=== PATIENT | male | born 1955 | race Caucasian/White ===

== ENCOUNTER 2016-06-29 12:37 | Emergency (ER) | payer OTHER ==
[2016-06-29] MEDS ORDERED: ONDANSETRON 4MG/2ML VIAL (J2405) As Ordered ONE (14:34)
[2016-06-29 14:55] LABS: BASO % 0.2 % (0.0-1.0); EOS # 0.1 K/mm3 (0.0-0.50); EOS % 1.4 % (0.0-3.0); LARGE UNSTAINED CELL # 0.1 K/mm3 (0.0-0.4); LYMPH # 0.7 K/mm3 (1.5-4.5); LYMPH % 12.1 % (24.0-44.0); MEAN CORPUSCULAR HEMOGLOBIN 30.9 pg (27.0-33.0); MEAN CORPUSCULAR HGB CONC 33.8 g/dl (32.0-36.5); MEAN CORPUSCULAR VOLUME 91.4 fl (80.0-96.0); MONO # 0.3 K/mm3 (0.0-0.8); MONO % 6.1 % (0.0-5.0); NEUTROPHILS # 4.3 K/mm3 (1.8-7.7); NEUTROPHILS % 78.2 % (36.0-66.0); PLATELET COUNT, AUTOMATED 208 k/mm3 (150-450); RED CELL DISTRIBUTION WIDTH 12.6 % (11.5-14.5); WHITE BLOOD COUNT 5.4 K/mm3 (4.0-10.0)
[2016-06-29 15:02] LABS: INR 1.03
[2016-06-29 15:19] LABS: ALBUMIN/GLOBULIN RATIO 1.18 (1.00-1.93); ALKALINE PHOSPHATASE 102 U/L (45-117); ALT/SGPT 31 U/L (12-78); ANION GAP 11 MEQ/L (8-16); AST/SGOT 17 U/L (15-37); BILIRUBIN,DIRECT 0.2 MG/DL (0.0-0.2); BILIRUBIN,TOTAL 0.7 MG/DL (0.2-1.0); BLOOD UREA NITROGEN 16 MG/DL (7-18); CARBON DIOXIDE LEVEL 24 MEQ/L (21-32); CHLORIDE LEVEL 109 MEQ/L (98-107); CREATININE FOR GFR 1.01 MG/DL (0.70-1.30); GLOMERULAR FILTRATION RATE > 60.0 (>49); GLUCOSE, FASTING 99 MG/DL (80-110); POTASSIUM SERUM 4.2 MEQ/L (3.5-5.1); SODIUM LEVEL 144 MEQ/L (136-145); TOTAL PROTEIN 7.4 GM/DL (6.4-8.2)
--- NOTE | 2016-06-29 16:03 | EDDOCDS ---
Physician Documentation [facility] Name: Billy Stover Age: 61 yrs Sex: Male : 1955 Arrival Date: 06/29/2016 Time: 12:37 Bed I3 / M3 Private MD: Parish Soria Disposition: 06/29/16 15:47 Discharged to Home/Self Care. Impression: Esophagitis. - Condition is Stable. - Discharge Instructions: Gastritis, Adult. - Prescriptions for Zantac 300 mg Oral Tablet - take 1 tablet by ORAL route At bedtime; 30 tablet. - Medication Reconciliation, Local Pharmacy Hours form. - Follow up: Emergency Department; When: As needed; Reason: Worsening of conditions. Follow up: Parish Sorai MD; When: Call to arrange an appointment; Reason: Wound/Symptom Recheck, Recheck today's complaints, Worsening of conditions, Continuance of care. - Problem is an ongoing problem. - Symptoms have improved. Historical: - Allergies: Bees (Anaphylaxis); - Home Meds: 1. Crestor 40 mg Oral tab 1 tab once daily (Last dose: 06/28/2016) 2. cilas as needed (Last dose: 06/23/2016) 3. Zantac 150 mg Oral tab once daily (Last dose: 06/29/2016 08:30) - PMHx: Hypercholesterolemia; Arthritis; - PSHx: Hernia repair; right knee surgery; trigger finger surgery; Carpal Tunnel Repair- Left; ulner nerve surgery on left elbow; Vasectomy; - Social history: Smoking status: Patient states was never smoker of tobacco. No barriers to communication noted, The patient speaks fluent Estonian, Speaks appropriately for age. - Family history: Not pertinent. - : The pt / caregiver states he / she is not on anticoagulants. Home medication list is obtained from the patient. - Exposure Risk Screening:: None identified. Vital Signs: 06/29 12:39 BP 167 / 92; Pulse 89; Resp 18 S; Temp 97.0(O); Pulse Ox 99% on R/A; Weight 146.06 kg / gr2 322.01 lbs (R); Height 6 ft. 3 in. (190.50 cm) (R); Pain 4/10; 14:05 BP 168 / 96; Pulse 100; Resp 18; Temp 99.2; Pulse Ox 97% on R/A; Pain 1/10; rn1 15:57 BP 144 / 82; Pulse 94; Resp 18; Temp 98.1(TE); Pulse Ox 95% on R/A; Pain 0/10; rn1 12:39 Body Mass Index 40.25 (146.06 kg, 190.50 cm) gr2 MDM: 14:25 Ondansetron 4 mg IVP once ordered. cc10 14:25 IV Saline Lock ordered. cc10 14:25 Undress patient appropriately for examination ordered. cc10 14:26 Basic Metabolic Profile Ordered. EDMS 14:26 CBC with Diff Ordered. EDMS 14:26 Cardiac Injury Profile Ordered. EDMS 14:26 Lipase Ordered. EDMS 14:26 Liver Profile Ordered. EDMS 14:26 Partial Thromboplastin Time Ordered. EDMS 14:26 Prothrombin Time Profile\E\INR Ordered. EDMS 14:26 Troponin Ordered. EDMS 14:26 Urinalysis Ordered. EDMS 14:26 NOTHING BY MOUTH+DIET ordered. EDMS 15:41 Basic Metabolic Profile Reviewed. cc10 15:41 CBC with Diff Reviewed. cc10 15:41 Urinalysis Reviewed. cc10 15:41 Cardiac Injury Profile Reviewed. cc10 15:41 Lipase Reviewed. cc10 15:41 Liver Profile Reviewed. cc10 15:41 Partial Thromboplastin Time Reviewed. cc10 15:41 Prothrombin Time Profile\E\INR Reviewed. cc10 15:41 Troponin Reviewed. cc10 15:43 Financial registration complete. [facility] 15:44 [facility] Payment Agreement was scanned into [employer] and attached to record. gjb Administered Medications: 14:40 Drug: Ondansetron 4 mg [ondansetron HCl 2 mg/mL intravenous solution (2 mL)] Route: ttb IVP; Site: right antecubital; 16:01 Follow up: Response: No Adverse Reaction ka4 Signatures: Dispatcher [employer] EDMS Maryjane Stubbs RN RN dsJody Leon RN RN ttb Bandar Polk, PA-C PA-C cc10 Dian Rojo LPN NET DEVELOPER [employer] ka4 Katherine Barroso The chart was reviewed and I authenticate all verbal orders and agree with the evaluation and treatment provided.Attachments: 15:44 [facility] Payment Agreement gjb MTDD
--- NOTE | 2016-06-29 16:04 | EDDOCDS ---
Nurse's Notes [facility] Name: Billy Stover Age: 61 yrs Sex: Male : 1955 Arrival Date: 06/29/2016 Time: 12:37 Bed I3 / M3 Private MD: Parish Soria Diagnosis: Esophagitis Presentation: 06/29 12:43 Presenting complaint: Patient states: took a cilas on Sunday and has had heart burn dsf since then. pt states he usually will get heartburn afterwards but it will go away this time it has not. pt did go to urgent care an EKG was down and said it looked normal but needed blood work down. Adult Sepsis Screening: The patient does not have new or worsening altered mentation. Patient's respiratory rate is less than 22. Systolic blood pressure is greater than 100. Patient has a qSOFA score of 0- Negative Sepsis Screen. Suicide/Homicide risk assessment- the patient denies having any suicidal and/or homicidal ideations and does not present with any other emotional, behavioral or mental health complaints. 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 Transition of care: Patient was received from [facility] [place] [facility]. 12:43 Acuity: ERIC Level 4 dsf 12:43 Method Of Arrival: Walkin/Carried/Asstd dsf Triage Assessment: 12:47 General: Appears in no apparent distress, Behavior is appropriate for age, cooperative. dsf Pain: Denies pain. HIV screening NA for this visit Offered previously. GI: Reports heartburn. Historical: - Allergies: Bees (Anaphylaxis); - Home Meds: 1. Crestor 40 mg Oral tab 1 tab once daily (Last dose: 06/28/2016) 2. cilas as needed (Last dose: 06/23/2016) 3. Zantac 150 mg Oral tab once daily (Last dose: 06/29/2016 08:30) - PMHx: Hypercholesterolemia; Arthritis; - PSHx: Hernia repair; right knee surgery; trigger finger surgery; Carpal Tunnel Repair- Left; ulner nerve surgery on left elbow; Vasectomy; - Social history: Smoking status: Patient states was never smoker of tobacco. No barriers to communication noted, The patient speaks fluent Andorran, Speaks appropriately for age. - Family history: Not pertinent. - : The pt / caregiver states he / she is not on anticoagulants. Home medication list is obtained from the patient. - Exposure Risk Screening:: None identified. Screenin:59 Screening information is obtained from the patient. Fall risk: No risks identified. ka4 Assistance ADL's: requires no assistance with activities of daily living. Abuse/DV Screen: The patient / caregiver reports he/she is: not in a situation that causes fear, pain or injury. Nutritional screening: No deficits noted. Advance Directives: There is no active DNR order. home support is adequate. Assessment: 13:55 Adult Sepsis Screening: The patient does not have new or worsening altered mentation. dsf Patient's respiratory rate is less than 22. Systolic blood pressure is greater than 100. Patient has a qSOFA score of 0- Negative Sepsis Screen. General: Appears in no apparent distress, Behavior is appropriate for age, cooperative. Pain: Denies pain. Neurological: Level of Consciousness is awake, alert. Cardiovascular: Capillary refill < 3 seconds Heart tones S1 S2 present. Respiratory: Airway is patent Respiratory effort is even, unlabored, Respiratory pattern is regular, symmetrical, Breath sounds are clear bilaterally. GI: Abdomen is non- distended obese, Bowel sounds present X 4 quads. Abd is soft and non tender X 4 quads. Reports heart burn is better. Derm: Skin is pink, warm & dry. 14:49 General: Appears in no apparent distress, comfortable. Pain: Location: upper abd. ttb Neurological: Level of Consciousness is awake, alert. Cardiovascular: Chest pain is denied. Cardiovascular: Heart tones S1 S2 present. Respiratory: No deficits noted. Airway is patent Respiratory effort is even, unlabored, Breath sounds are clear bilaterally. GI: Reports "heartburn" and "indigestion". Derm: Skin is normal. 15:59 General: Appears in no apparent distress, comfortable, well developed, well nourished, ka4 well groomed, Behavior is appropriate for age, cooperative, pleasant. Respiratory: Airway is patent Respiratory effort is even, unlabored, Respiratory pattern is regular, symmetrical. Derm: Skin is intact, is healthy with good turgor, Skin is pink, warm & dry. Vital Signs: 12:39 BP 167 / 92; Pulse 89; Resp 18 S; Temp 97.0(O); Pulse Ox 99% on R/A; Weight 146.06 kg gr2 (R); Height 6 ft. 3 in. (190.50 cm) (R); Pain 4/10; 14:05 BP 168 / 96; Pulse 100; Resp 18; Temp 99.2; Pulse Ox 97% on R/A; Pain 1/10; rn1 15:57 BP 144 / 82; Pulse 94; Resp 18; Temp 98.1(TE); Pulse Ox 95% on R/A; Pain 0/10; rn1 12:39 Body Mass Index 40.25 (146.06 kg, 190.50 cm) gr2 Vitals: 12:39 Log In Time: June 29, 2016 at 12:39. gr2 ED Course: 12:38 Patient visited by Giuseppe Atkins. gr2 12:38 Parish Soria MD is Private Physician. gr2 12:38 Patient moved to Waiting gr2 12:40 Patient visited by Giuseppe Atkins. gr2 12:40 Patient moved to Pre RCE gr2 12:45 Triage Initiated dsf 13:53 Patient moved to Triage 2 dsf 13:56 Patient visited by Maryjane Stubbs RN. dsf 14:20 Bandar Polk PA-C is PHCP. cc10 14:20 Carolina Jaquez MD is Attending Physician. cc10 14:20 Patient visited by Bandar Polk PA-C. cc10 14:20 Patient visited by Bandar Polk PA-C. cc10 14:27 Patient moved to I3 / M3 kr3 14:48 Basic Metabolic Profile Sent. ttb 14:48 CBC with Diff Sent. ttb 14:48 Cardiac Injury Profile Sent. ttb 14:48 Lipase Sent. ttb 14:48 Liver Profile Sent. ttb 14:48 Partial Thromboplastin Time Sent. ttb 14:48 Prothrombin Time Profile\\E\\INR Sent. ttb 14:48 Troponin Sent. ttb 14:48 Urinalysis Sent. ttb 14:49 Inserted peripheral IV: 20gauge IV in right antecubital area and blood collected. ttb Patient tolerated the procedure well. Labs drawn. (by ED staff). Urine collected. Clean catch specimen. 14:51 Patient visited by Jody Moulton RN. ttb 15:43 Patient visited by Ana Bautista RN. rs3 15:44 [facility] Payment Agreement was scanned into [employer] and attached to record. gjb 15:46 Parish Soria MD is Referral Physician. cc10 15:59 The patient / caregiver is instructed regarding the plan of care and ED course. Patient preet has correct armband on for positive identification. 15:59 Discontinued IV lock intact, bleeding controlled, pressure dressing applied, No ka4 redness/swelling at site. No procedures done that require assistance. 16:02 Patient visited by Dian Rojo LPN. kaMaggie Administered Medications: 14:40 Drug: Ondansetron 4 mg [ondansetron HCl 2 mg/mL intravenous solution (2 mL)] Route: ttb IVP; Site: right antecubital; 16:01 Follow up: Response: No Adverse Reaction kaMaggie Order Results: Lab Order: Basic Metabolic Profile; SPEC'M 06/29/16 14:44 Test: GLUCOSE, FASTING; Value: 99; Range: 80-110; Units: MG/DL; Status: F Test: BLOOD UREA NITROGEN; Value: 16; Range: 7-18; Units: MG/DL; Status: F Test: CREATININE FOR GFR; Value: 1.01; Range: 0.70-1.30; Units: MG/DL; Status: F Test: GLOMERULAR FILTRATION RATE; Value: > 60.0; Range: >49; Status: F Test: SODIUM LEVEL; Value: 144; Range: 136-145; Units: MEQ/L; Status: F Test: POTASSIUM SERUM; Value: 4.2; Range: 3.5-5.1; Units: MEQ/L; Status: F Test: CHLORIDE LEVEL; Value: 109; Range: 98-107; Abnormal: Above high normal; Units: MEQ/L; Status: F Test: CARBON DIOXIDE LEVEL; Value: 24; Range: 21-32; Units: MEQ/L; Status: F Test: ANION GAP; Value: 11; Range: 8-16; Units: MEQ/L; Status: F Test: CALCIUM LEVEL; Value: 9.0; Range: 8.8-10.2; Units: MG/DL; Status: F Test Note: ; Units are mL/min/1.73 m2 Chronic Kidney Disease Staging per NKF: Stage I & II GFR >=60 Normal to Mildly Decreased Stage III GFR 30-59 Moderately Decreased Stage IV GFR 15-29 Severely Decreased Stage V GFR <15 Very Little GFR Left ESRD GFR <15 on OPTOMETRIC TECH Lab Order: CBC with Diff; SPEC'M 06/29/16 14:44 Test: WHITE BLOOD COUNT; Value: 5.4; Range: 4.0-10.0; Units: K/mm3; Status: F Test: RED BLOOD COUNT; Value: 5.06; Range: 4.30-6.10; Units: M/mm3; Status: F Test: HEMOGLOBIN; Value: 15.6; Range: 14.0-18.0; Units: g/dl; Status: F Test: HEMATOCRIT; Value: 46.2; Range: 42.0-52.0; Units: %; Status: F Test: MEAN CORPUSCULAR VOLUME; Value: 91.4; Range: 80.0-96.0; Units: fl; Status: F Test: MEAN CORPUSCULAR HEMOGLOBIN; Value: 30.9; Range: 27.0-33.0; Units: pg; Status: F Test: MEAN CORPUSCULAR HGB CONC; Value: 33.8; Range: 32.0-36.5; Units: g/dl; Status: F Test: RED CELL DISTRIBUTION WIDTH; Value: 12.6; Range: 11.5-14.5; Units: %; Status: F Test: PLATELET COUNT, AUTOMATED; Value: 208; Range: 150-450; Units: k/mm3; Status: F Test: NEUTROPHILS %; Value: 78.2; Range: 36.0-66.0; Abnormal: Above high normal; Units: %; Status: F Test: LYMPH %; Value: 12.1; Range: 24.0-44.0; Abnormal: Below low normal; Units: %; Status: F Test: MONO %; Value: 6.1; Range: 0.0-5.0; Abnormal: Above high normal; Units: %; Status: F Test: EOS %; Value: 1.4; Range: 0.0-3.0; Units: %; Status: F Test: BASO %; Value: 0.2; Range: 0.0-1.0; Units: %; Status: F Test: LARGE UNSTAINED CELL %; Value: 2.0; Range: 0.0-4.0; Units: %; Status: F Test: NEUTROPHILS #; Value: 4.3; Range: 1.8-7.7; Units: K/mm3; Status: F Test: LYMPH #; Value: 0.7; Range: 1.5-4.5; Abnormal: Below low normal; Units: K/mm3; Status: F Test: MONO #; Value: 0.3; Range: 0.0-0.8; Units: K/mm3; Status: F Test: EOS #; Value: 0.1; Range: 0.0-0.50; Units: K/mm3; Status: F Test: BASO #; Value: 0.0; Range: 0.0-0.2; Units: K/mm3; Status: F Test: LARGE UNSTAINED CELL #; Value: 0.1; Range: 0.0-0.4; Units: K/mm3; Status: F Lab Order: Cardiac Injury Profile; [facility]' 06/29/16 14:44 Test: CPK CREATINE PHOSPHOKINASE; Value: 210; Range: 39-308; Units: U/L; Status: F Test: CK-MB VALUE MASS; Value: 2.9; Range: 0.0-3.6; Units: NG/ML; Status: F Test: MB/CK RELATIVE INDEX; Value: 1.38; Range: < OR =4; Status: F Test Note: ; DIAGNOSIS CRITERIA MMB ng/ml Relative Index (RI) NON-AMI < or = 5 N/A MELLO ZONE > 5 < or = 4 AMI > 5 > 4 Lab Order: Lipase; [facility]' 06/29/16 14:44 Test: LIPASE; Value: 139; Range: 73-393; Units: U/L; Status: F Lab Order: Liver Profile; [facility]' 06/29/16 14:44 Test: AST/SGOT; Value: 17; Range: 15-37; Units: U/L; Status: F Test: ALT/SGPT; Value: 31; Range: 12-78; Units: U/L; Status: F Test: ALKALINE PHOSPHATASE; Value: 102; Range: 45-117; Units: U/L; Status: F Test: BILIRUBIN,TOTAL; Value: 0.7; Range: 0.2-1.0; Units: MG/DL; Status: F Test: BILIRUBIN,DIRECT; Value: 0.2; Range: 0.0-0.2; Units: MG/DL; Status: F Test: TOTAL PROTEIN; Value: 7.4; Range: 6.4-8.2; Units: GM/DL; Status: F Test: ALBUMIN; Value: 4.0; Range: 3.2-5.2; Units: GM/DL; Status: F Test: ALBUMIN/GLOBULIN RATIO; Value: 1.18; Range: 1.00-1.93; Status: F Lab Order: Partial Thromboplastin Time; [facility] 06/29/16 14:44 Test: PARTIAL THROMBOPLASTIN TIME; Value: 27.7; Range: 26.6-37.1; Units: SECONDS; Status: F Lab Order: Prothrombin Time Profile\\E\\INR; [facility] 06/29/16 14:44 Test: PROTHROMBIN TIME; Value: 13.6; Range: 12.3-14.5; Units: SECONDS; Status: F Test: INR; Value: 1.03; Status: F Test Note: ; THERAPUTIC HUMAN INR VALUES INDICATIONS NORMAL RANGES PROPHYLAXIS/TREATMENT OF: VENOUS THROMBOSIS 2.0-3.0 PULMONARY EMBOLISM 2.0-3.0 PREVENTION OF SYSTEMIC EMBOLISM FROM: TISSUE HEART VALVES 2.0-3.0 ACUTE MYOCARDIAL INFARCTION 2.0-3.0 VALVULAR HEART DISEASE 2.0-3.0 ATRIAL FIBRILLATION 2.0-3.0 MECHANICAL VALVES(HIGH RISK) 2.5-3.5 RECURRENT MYOCARDIAL INFARCTION 2.5-3.5 Lab Order: Troponin; [facility] 06/29/16 14:44 Test: TROPONIN I; Value: < 0.02; Range: < 0.10; Units: NG/ML; Status: F Test Note: ; Troponin I Reference Interval for The Editorialist LOCI: 99th Percentile= 0.00-0.045 ng/ml Risk Stratification: <= 0.10 ng/ml Decreased Risk for Adverse Clinical Events. 0.10-1.50 ng/ml Increased Risk for Adverse Clinical Events. Evaluation of additional criterion and/or repeat testing in 2-6 hours is suggested to rule out myocardial damage. >= 1.50 ng/ml Indicative of Myocardial Injury. Lab Order: Urinalysis; SPEC'M 06/29/16 14:44 Test: APPEARANCE, URINE; Value: HAZY; Range: CLEAR; Status: F Test: COLOR, URINE; Value: YELLOW; Range: YELLOW; Status: F Test: PH,URINE; Value: 6.0; Range: 5.0-9.0; Units: UNITS; Status: F Test: SPECIFIC GRAVITY URINE AUTO; Value: 1.018; Range: 1.002-1.035; Status: F Test: PROTEIN, URINE AUTO; Value: NEGATIVE; Range: NEGATIVE; Units: mg/dL; Status: F Test: GLUCOSE, URINE (UA) AUTO; Value: NEGATIVE; Range: NEGATIVE; Units: mg/dL; Status: F Test: KETONE, URINE AUTO; Value: TRACE; Range: NEGATIVE; Abnormal: Above high normal; Units: mg/dL; Status: F Test: UROBILINOGEN, URINE AUTO; Value: 0.2; Range: 0.0-2.0; Units: mg/dL; Status: F Test: BILIRUBIN, URINE AUTO; Value: NEGATIVE; Range: NEGATIVE; Status: F Test: NITRITE, URINE AUTO; Value: NEGATIVE; Range: NEGATIVE; Status: F Test: LEUKOCYTE ESTERASE, URINE AUTO; Value: NEGATIVE; Range: NEGATIVE; Status: F Test: BLOOD, URINE BLOOD; Value: NEGATIVE; Range: NEGATIVE; Status: F Test: WBC, URINE AUTO; Value: 3; Range: 0-3; Units: /HPF; Status: F Test: RBC, URINE AUTO; Value: 17; Range: 0-3; Abnormal: Above high normal; Units: /HPF; Status: F Test: BACTERIA, URINE AUTO; Value: NEGATIVE; Range: NEGATIVE; Status: F Test: SQUAMOUS EPITHELIAL CELL UR AU; Value: 0; Range: 0-6; Units: /HPF; Status: F Test: MUCUS, URINE; Value: SMALL; Range: NEGATIVE; Status: F Test: HYALINE CAST, URINE AUTO; Value: 0; Range: 0-1; Units: /LPF; Status: F Outcome: 15:47 Discharge ordered by Provider. cc10 15:59 Discharge Assessment: Patient awake, alert and oriented x 3. No cognitive and/or ka4 functional deficits noted. Patient verbalized understanding of disposition instructions. patient administered narcotics - no. The following High Risk Discharge criteria are identified: None. Discharged to home ambulatory. Condition: good Condition: stable Condition: improved. Discharge instructions given to patient, Instructed on discharge instructions, follow up and referral plans. medication usage, Demonstrated understanding of instructions, medications, Pt was receptive of discharge instructions/ teaching. Prescriptions given X 1. No special radiology studies were completed. Property :Personal belongings accompany Pt. 16:02 Patient left the ED. ka4 Signatures: Landy Spencer,RN RN kr3 Ana BautistaRN RN rs3 Maryjane Stubbs RN RN dsJody Leon RN RN ttb Giuseppe Atkins gr2 Bandar Polk, PA-C PA-C cc10 Dian Rojo LPN LPN ka4 Kingsley Miguel rn1 Katherine Barroso MTDBreanne
--- NOTE | 2016-07-01 17:03 | EDDOCDS ---
Physician Documentation [facility] Name: Billy Stover Age: 61 yrs Sex: Male : 1955 Arrival Date: 06/29/2016 Time: 12:37 Bed I3 / M3 Private MD: Parish Soria Disposition: 06/29/16 15:47 Discharged to Home/Self Care. Impression: Esophagitis. - Condition is Stable. - Discharge Instructions: Gastritis, Adult. - Prescriptions for Zantac 300 mg Oral Tablet - take 1 tablet by ORAL route At bedtime; 30 tablet. - Medication Reconciliation, Local Pharmacy Hours form. - Follow up: Emergency Department; When: As needed; Reason: Worsening of conditions. Follow up: Parish Soria MD; When: Call to arrange an appointment; Reason: Wound/Symptom Recheck, Recheck today's complaints, Worsening of conditions, Continuance of care. - Problem is an ongoing problem. - Symptoms have improved. Historical: - Allergies: Bees (Anaphylaxis); - Home Meds: 1. Crestor 40 mg Oral tab 1 tab once daily (Last dose: 06/28/2016) 2. cilas as needed (Last dose: 06/23/2016) 3. Zantac 150 mg Oral tab once daily (Last dose: 06/29/2016 08:30) - PMHx: Hypercholesterolemia; Arthritis; - PSHx: Hernia repair; right knee surgery; trigger finger surgery; Carpal Tunnel Repair- Left; ulner nerve surgery on left elbow; Vasectomy; - Social history: Smoking status: Patient states was never smoker of tobacco. No barriers to communication noted, The patient speaks fluent Pashto, Speaks appropriately for age. - Family history: Not pertinent. - : The pt / caregiver states he / she is not on anticoagulants. Home medication list is obtained from the patient. - Exposure Risk Screening:: None identified. Vital Signs: 06/29 12:39 BP 167 / 92; Pulse 89; Resp 18 S; Temp 97.0(O); Pulse Ox 99% on R/A; Weight 146.06 kg / gr2 322.01 lbs (R); Height 6 ft. 3 in. (190.50 cm) (R); Pain 4/10; 14:05 BP 168 / 96; Pulse 100; Resp 18; Temp 99.2; Pulse Ox 97% on R/A; Pain 1/10; rn1 15:57 BP 144 / 82; Pulse 94; Resp 18; Temp 98.1(TE); Pulse Ox 95% on R/A; Pain 0/10; rn1 12:39 Body Mass Index 40.25 (146.06 kg, 190.50 cm) gr2 MDM: 14:25 Ondansetron 4 mg IVP once ordered. cc10 14:25 IV Saline Lock ordered. cc10 14:25 Undress patient appropriately for examination ordered. cc10 14:26 Basic Metabolic Profile Ordered. EDMS 14:26 CBC with Diff Ordered. EDMS 14:26 Cardiac Injury Profile Ordered. EDMS 14:26 Lipase Ordered. EDMS 14:26 Liver Profile Ordered. EDMS 14:26 Partial Thromboplastin Time Ordered. EDMS 14:26 Prothrombin Time Profile\E\INR Ordered. EDMS 14:26 Troponin Ordered. EDMS 14:26 Urinalysis Ordered. EDMS 14:26 NOTHING BY MOUTH+DIET ordered. EDMS 15:41 Basic Metabolic Profile Reviewed. cc10 15:41 CBC with Diff Reviewed. cc10 15:41 Urinalysis Reviewed. cc10 15:41 Cardiac Injury Profile Reviewed. cc10 15:41 Lipase Reviewed. cc10 15:41 Liver Profile Reviewed. cc10 15:41 Partial Thromboplastin Time Reviewed. cc10 15:41 Prothrombin Time Profile\E\INR Reviewed. cc10 15:41 Troponin Reviewed. cc10 15:43 Financial registration complete. [facility] 15:44 [facility] Payment Agreement was scanned into [employer] and attached to record. [facility] 06/30 08:12 T-Sheet-- Draft Copy was scanned into [employer] and attached to record. gb Administered Medications: 06/29 14:40 Drug: Ondansetron 4 mg [ondansetron HCl 2 mg/mL intravenous solution (2 mL)] Route: ttb IVP; Site: right antecubital; 16:01 Follow up: Response: No Adverse Reaction ka4 Signatures: Dispatcher [employer] EDMS Edilma Romero, Maryjane Souza RN RN dsJody Leon RN RN ttb Bandar Polk, PA-C PA-C cc10 Dian Rojo LPN [employer] ka4 Katherine Barroso The chart was reviewed and I authenticate all verbal orders and agree with the evaluation and treatment provided.Attachments: 15:44 [facility] Payment Agreement gjb 06/30 08:12 T-Sheet-- Draft Copy gb Chart Complete MTDD
--- NOTE | 2016-07-01 17:03 | EDDOCDS ---
Physician Documentation [facility] Name: Billy Stover Age: 61 yrs Sex: Male : 1955 Arrival Date: 06/29/2016 Time: 12:37 Bed I3 / M3 Private MD: Parish Soria Disposition: 06/29/16 15:47 Discharged to Home/Self Care. Impression: Esophagitis. - Condition is Stable. - Discharge Instructions: Gastritis, Adult. - Prescriptions for Zantac 300 mg Oral Tablet - take 1 tablet by ORAL route At bedtime; 30 tablet. - Medication Reconciliation, Local Pharmacy Hours form. - Follow up: Emergency Department; When: As needed; Reason: Worsening of conditions. Follow up: Parish Soria MD; When: Call to arrange an appointment; Reason: Wound/Symptom Recheck, Recheck today's complaints, Worsening of conditions, Continuance of care. - Problem is an ongoing problem. - Symptoms have improved. Historical: - Allergies: Bees (Anaphylaxis); - Home Meds: 1. Crestor 40 mg Oral tab 1 tab once daily (Last dose: 06/28/2016) 2. cilas as needed (Last dose: 06/23/2016) 3. Zantac 150 mg Oral tab once daily (Last dose: 06/29/2016 08:30) - PMHx: Hypercholesterolemia; Arthritis; - PSHx: Hernia repair; right knee surgery; trigger finger surgery; Carpal Tunnel Repair- Left; ulner nerve surgery on left elbow; Vasectomy; - Social history: Smoking status: Patient states was never smoker of tobacco. No barriers to communication noted, The patient speaks fluent Latvian, Speaks appropriately for age. - Family history: Not pertinent. - : The pt / caregiver states he / she is not on anticoagulants. Home medication list is obtained from the patient. - Exposure Risk Screening:: None identified. Vital Signs: 06/29 12:39 BP 167 / 92; Pulse 89; Resp 18 S; Temp 97.0(O); Pulse Ox 99% on R/A; Weight 146.06 kg / gr2 322.01 lbs (R); Height 6 ft. 3 in. (190.50 cm) (R); Pain 4/10; 14:05 BP 168 / 96; Pulse 100; Resp 18; Temp 99.2; Pulse Ox 97% on R/A; Pain 1/10; rn1 15:57 BP 144 / 82; Pulse 94; Resp 18; Temp 98.1(TE); Pulse Ox 95% on R/A; Pain 0/10; rn1 12:39 Body Mass Index 40.25 (146.06 kg, 190.50 cm) gr2 MDM: 14:25 Ondansetron 4 mg IVP once ordered. cc10 14:25 IV Saline Lock ordered. cc10 14:25 Undress patient appropriately for examination ordered. cc10 14:26 Basic Metabolic Profile Ordered. EDMS 14:26 CBC with Diff Ordered. EDMS 14:26 Cardiac Injury Profile Ordered. EDMS 14:26 Lipase Ordered. EDMS 14:26 Liver Profile Ordered. EDMS 14:26 Partial Thromboplastin Time Ordered. EDMS 14:26 Prothrombin Time Profile\E\INR Ordered. EDMS 14:26 Troponin Ordered. EDMS 14:26 Urinalysis Ordered. EDMS 14:26 NOTHING BY MOUTH+DIET ordered. EDMS 15:41 Basic Metabolic Profile Reviewed. cc10 15:41 CBC with Diff Reviewed. cc10 15:41 Urinalysis Reviewed. cc10 15:41 Cardiac Injury Profile Reviewed. cc10 15:41 Lipase Reviewed. cc10 15:41 Liver Profile Reviewed. cc10 15:41 Partial Thromboplastin Time Reviewed. cc10 15:41 Prothrombin Time Profile\E\INR Reviewed. cc10 15:41 Troponin Reviewed. cc10 15:43 Financial registration complete. [facility] 15:44 [facility] Payment Agreement was scanned into [employer] and attached to record. [facility] 06/30 08:12 T-Sheet-- Draft Copy was scanned into [employer] and attached to record. gb Administered Medications: 06/29 14:40 Drug: Ondansetron 4 mg [ondansetron HCl 2 mg/mL intravenous solution (2 mL)] Route: ttb IVP; Site: right antecubital; 16:01 Follow up: Response: No Adverse Reaction ka4 Signatures: Dispatcher [employer] EDMS Edilma Romero, Maryjane Souza RN RN dsJody Leon RN RN ttb Bandar Polk, PA-C PA-C cc10 Dian Rojo LPN SOLARIS ADMINISTRATOR ka4 Katherine Barroso The chart was reviewed and I authenticate all verbal orders and agree with the evaluation and treatment provided.Attachments: 15:44 [facility] Payment Agreement gjb 06/30 08:12 T-Sheet-- Draft Copy gb Chart Complete MTDD
--- NOTE | 2016-07-01 17:03 | EDDOCDS ---
Nurse's Notes [facility] Name: Billy Stover Age: 61 yrs Sex: Male : 1955 Arrival Date: 06/29/2016 Time: 12:37 Bed I3 / M3 Private MD: Parish Soria Diagnosis: Esophagitis Presentation: 06/29 12:43 Presenting complaint: Patient states: took a cilas on Sunday and has had heart burn dsf since then. pt states he usually will get heartburn afterwards but it will go away this time it has not. pt did go to urgent care an EKG was down and said it looked normal but needed blood work down. Adult Sepsis Screening: The patient does not have new or worsening altered mentation. Patient's respiratory rate is less than 22. Systolic blood pressure is greater than 100. Patient has a qSOFA score of 0- Negative Sepsis Screen. Suicide/Homicide risk assessment- the patient denies having any suicidal and/or homicidal ideations and does not present with any other emotional, behavioral or mental health complaints. Status: Patient is not a senior service aide or dependent. Transition of care: Patient was received from [facility] Urgent [facility] [place]. 12:43 Acuity: ERIC Level 4 dsf 12:43 Method Of Arrival: Walkin/Carried/Asstd dsf Triage Assessment: 12:47 General: Appears in no apparent distress, Behavior is appropriate for age, cooperative. dsf Pain: Denies pain. HIV screening NA for this visit Offered previously. GI: Reports heartburn. Historical: - Allergies: Bees (Anaphylaxis); - Home Meds: 1. Crestor 40 mg Oral tab 1 tab once daily (Last dose: 06/28/2016) 2. cilas as needed (Last dose: 06/23/2016) 3. Zantac 150 mg Oral tab once daily (Last dose: 06/29/2016 08:30) - PMHx: Hypercholesterolemia; Arthritis; - PSHx: Hernia repair; right knee surgery; trigger finger surgery; Carpal Tunnel Repair- Left; ulner nerve surgery on left elbow; Vasectomy; - Social history: Smoking status: Patient states was never smoker of tobacco. No barriers to communication noted, The patient speaks fluent Lebanese, Speaks appropriately for age. - Family history: Not pertinent. - : The pt / caregiver states he / she is not on anticoagulants. Home medication list is obtained from the patient. - Exposure Risk Screening:: None identified. Screenin:59 Screening information is obtained from the patient. Fall risk: No risks identified. ka4 Assistance ADL's: requires no assistance with activities of daily living. Abuse/DV Screen: The patient / caregiver reports he/she is: not in a situation that causes fear, pain or injury. Nutritional screening: No deficits noted. Advance Directives: There is no active DNR order. home support is adequate. Assessment: 13:55 Adult Sepsis Screening: The patient does not have new or worsening altered mentation. dsf Patient's respiratory rate is less than 22. Systolic blood pressure is greater than 100. Patient has a qSOFA score of 0- Negative Sepsis Screen. General: Appears in no apparent distress, Behavior is appropriate for age, cooperative. Pain: Denies pain. Neurological: Level of Consciousness is awake, alert. Cardiovascular: Capillary refill < 3 seconds Heart tones S1 S2 present. Respiratory: Airway is patent Respiratory effort is even, unlabored, Respiratory pattern is regular, symmetrical, Breath sounds are clear bilaterally. GI: Abdomen is non- distended obese, Bowel sounds present X 4 quads. Abd is soft and non tender X 4 quads. Reports heart burn is better. Derm: Skin is pink, warm & dry. 14:49 General: Appears in no apparent distress, comfortable. Pain: Location: upper abd. ttb Neurological: Level of Consciousness is awake, alert. Cardiovascular: Chest pain is denied. Cardiovascular: Heart tones S1 S2 present. Respiratory: No deficits noted. Airway is patent Respiratory effort is even, unlabored, Breath sounds are clear bilaterally. GI: Reports "heartburn" and "indigestion". Derm: Skin is normal. 15:59 General: Appears in no apparent distress, comfortable, well developed, well nourished, ka4 well groomed, Behavior is appropriate for age, cooperative, pleasant. Respiratory: Airway is patent Respiratory effort is even, unlabored, Respiratory pattern is regular, symmetrical. Derm: Skin is intact, is healthy with good turgor, Skin is pink, warm & dry. Vital Signs: 12:39 BP 167 / 92; Pulse 89; Resp 18 S; Temp 97.0(O); Pulse Ox 99% on R/A; Weight 146.06 kg gr2 (R); Height 6 ft. 3 in. (190.50 cm) (R); Pain 4/10; 14:05 BP 168 / 96; Pulse 100; Resp 18; Temp 99.2; Pulse Ox 97% on R/A; Pain 1/10; rn1 15:57 BP 144 / 82; Pulse 94; Resp 18; Temp 98.1(TE); Pulse Ox 95% on R/A; Pain 0/10; rn1 12:39 Body Mass Index 40.25 (146.06 kg, 190.50 cm) gr2 Vitals: 12:39 Log In Time: June 29, 2016 at 12:39. gr2 ED Course: 12:38 Patient visited by Giuseppe Atkins. gr2 12:38 Parish Soria MD is Private Physician. gr2 12:38 Patient moved to Waiting gr2 12:40 Patient visited by Giuseppe Atkins. gr2 12:40 Patient moved to Pre RCE gr2 12:45 Triage Initiated dsf 13:53 Patient moved to Triage 2 dsf 13:56 Patient visited by Maryjane Stubbs RN. dsf 14:20 Bandar Polk PA-C is PHCP. cc10 14:20 Carolina Jaquez MD is Attending Physician. cc10 14:20 Patient visited by Bandar Polk PA-C. cc10 14:20 Patient visited by Bandar Polk PA-C. cc10 14:27 Patient moved to I3 / M3 kr3 14:48 Basic Metabolic Profile Sent. ttb 14:48 CBC with Diff Sent. ttb 14:48 Cardiac Injury Profile Sent. ttb 14:48 Lipase Sent. ttb 14:48 Liver Profile Sent. ttb 14:48 Partial Thromboplastin Time Sent. ttb 14:48 Prothrombin Time Profile\\E\\INR Sent. ttb 14:48 Troponin Sent. ttb 14:48 Urinalysis Sent. ttb 14:49 Inserted peripheral IV: 20gauge IV in right antecubital area and blood collected. ttb Patient tolerated the procedure well. Labs drawn. (by ED staff). Urine collected. Clean catch specimen. 14:51 Patient visited by Jody Moulton RN. ttb 15:43 Patient visited by Ana Bautista RN. rs3 15:44 [facility] Payment Agreement was scanned into [employer] and attached to record. gjb 15:46 Parish Soria MD is Referral Physician. cc10 15:59 The patient / caregiver is instructed regarding the plan of care and ED course. Patient preet has correct armband on for positive identification. 15:59 Discontinued IV lock intact, bleeding controlled, pressure dressing applied, No kaMaggie redness/swelling at site. No procedures done that require assistance. 16:02 Patient visited by Dian Rojo LPN. preet 06/30 08:12 T-Sheet-- Draft Copy was scanned into [employer] and attached to record. gb Administered Medications: 06/29 14:40 Drug: Ondansetron 4 mg [ondansetron HCl 2 mg/mL intravenous solution (2 mL)] Route: ttb IVP; Site: right antecubital; 16:01 Follow up: Response: No Adverse Reaction kaMaggie Order Results: Lab Order: Basic Metabolic Profile; SPEC'M 06/29/16 14:44 Test: GLUCOSE, FASTING; Value: 99; Range: 80-110; Units: MG/DL; Status: F Test: BLOOD UREA NITROGEN; Value: 16; Range: 7-18; Units: MG/DL; Status: F Test: CREATININE FOR GFR; Value: 1.01; Range: 0.70-1.30; Units: MG/DL; Status: F Test: GLOMERULAR FILTRATION RATE; Value: > 60.0; Range: >49; Status: F Test: SODIUM LEVEL; Value: 144; Range: 136-145; Units: MEQ/L; Status: F Test: POTASSIUM SERUM; Value: 4.2; Range: 3.5-5.1; Units: MEQ/L; Status: F Test: CHLORIDE LEVEL; Value: 109; Range: 98-107; Abnormal: Above high normal; Units: MEQ/L; Status: F Test: CARBON DIOXIDE LEVEL; Value: 24; Range: 21-32; Units: MEQ/L; Status: F Test: ANION GAP; Value: 11; Range: 8-16; Units: MEQ/L; Status: F Test: CALCIUM LEVEL; Value: 9.0; Range: 8.8-10.2; Units: MG/DL; Status: F Test Note: ; Units are mL/min/1.73 m2 Chronic Kidney Disease Staging per NKF: Stage I & II GFR >=60 Normal to Mildly Decreased Stage III GFR 30-59 Moderately Decreased Stage IV GFR 15-29 Severely Decreased Stage V GFR <15 Very Little GFR Left ESRD GFR <15 on CLAIM AGENT Lab Order: CBC with Diff; SPEC'M 06/29/16 14:44 Test: WHITE BLOOD COUNT; Value: 5.4; Range: 4.0-10.0; Units: K/mm3; Status: F Test: RED BLOOD COUNT; Value: 5.06; Range: 4.30-6.10; Units: M/mm3; Status: F Test: HEMOGLOBIN; Value: 15.6; Range: 14.0-18.0; Units: g/dl; Status: F Test: HEMATOCRIT; Value: 46.2; Range: 42.0-52.0; Units: %; Status: F Test: MEAN CORPUSCULAR VOLUME; Value: 91.4; Range: 80.0-96.0; Units: fl; Status: F Test: MEAN CORPUSCULAR HEMOGLOBIN; Value: 30.9; Range: 27.0-33.0; Units: pg; Status: F Test: MEAN CORPUSCULAR HGB CONC; Value: 33.8; Range: 32.0-36.5; Units: g/dl; Status: F Test: RED CELL DISTRIBUTION WIDTH; Value: 12.6; Range: 11.5-14.5; Units: %; Status: F Test: PLATELET COUNT, AUTOMATED; Value: 208; Range: 150-450; Units: k/mm3; Status: F Test: NEUTROPHILS %; Value: 78.2; Range: 36.0-66.0; Abnormal: Above high normal; Units: %; Status: F Test: LYMPH %; Value: 12.1; Range: 24.0-44.0; Abnormal: Below low normal; Units: %; Status: F Test: MONO %; Value: 6.1; Range: 0.0-5.0; Abnormal: Above high normal; Units: %; Status: F Test: EOS %; Value: 1.4; Range: 0.0-3.0; Units: %; Status: F Test: BASO %; Value: 0.2; Range: 0.0-1.0; Units: %; Status: F Test: LARGE UNSTAINED CELL %; Value: 2.0; Range: 0.0-4.0; Units: %; Status: F Test: NEUTROPHILS #; Value: 4.3; Range: 1.8-7.7; Units: K/mm3; Status: F Test: LYMPH #; Value: 0.7; Range: 1.5-4.5; Abnormal: Below low normal; Units: K/mm3; Status: F Test: MONO #; Value: 0.3; Range: 0.0-0.8; Units: K/mm3; Status: F Test: EOS #; Value: 0.1; Range: 0.0-0.50; Units: K/mm3; Status: F Test: BASO #; Value: 0.0; Range: 0.0-0.2; Units: K/mm3; Status: F Test: LARGE UNSTAINED CELL #; Value: 0.1; Range: 0.0-0.4; Units: K/mm3; Status: F Lab Order: Cardiac Injury Profile; [facility] 06/29/16 14:44 Test: CPK CREATINE PHOSPHOKINASE; Value: 210; Range: 39-308; Units: U/L; Status: F Test: CK-MB VALUE MASS; Value: 2.9; Range: 0.0-3.6; Units: NG/ML; Status: F Test: MB/CK RELATIVE INDEX; Value: 1.38; Range: < OR =4; Status: F Test Note: ; DIAGNOSIS CRITERIA MMB ng/ml Relative Index (RI) NON-AMI < or = 5 N/A MELLO ZONE > 5 < or = 4 AMI > 5 > 4 Lab Order: Lipase; [facility] 06/29/16 14:44 Test: LIPASE; Value: 139; Range: 73-393; Units: U/L; Status: F Lab Order: Liver Profile; [facility] 06/29/16 14:44 Test: AST/SGOT; Value: 17; Range: 15-37; Units: U/L; Status: F Test: ALT/SGPT; Value: 31; Range: 12-78; Units: U/L; Status: F Test: ALKALINE PHOSPHATASE; Value: 102; Range: 45-117; Units: U/L; Status: F Test: BILIRUBIN,TOTAL; Value: 0.7; Range: 0.2-1.0; Units: MG/DL; Status: F Test: BILIRUBIN,DIRECT; Value: 0.2; Range: 0.0-0.2; Units: MG/DL; Status: F Test: TOTAL PROTEIN; Value: 7.4; Range: 6.4-8.2; Units: GM/DL; Status: F Test: ALBUMIN; Value: 4.0; Range: 3.2-5.2; Units: GM/DL; Status: F Test: ALBUMIN/GLOBULIN RATIO; Value: 1.18; Range: 1.00-1.93; Status: F Lab Order: Partial Thromboplastin Time; SPEC' 06/29/16 14:44 Test: PARTIAL THROMBOPLASTIN TIME; Value: 27.7; Range: 26.6-37.1; Units: SECONDS; Status: F Lab Order: Prothrombin Time Profile\\E\\INR; SPEC' 06/29/16 14:44 Test: PROTHROMBIN TIME; Value: 13.6; Range: 12.3-14.5; Units: SECONDS; Status: F Test: INR; Value: 1.03; Status: F Test Note: ; THERAPUTIC HUMAN INR VALUES INDICATIONS NORMAL RANGES PROPHYLAXIS/TREATMENT OF: VENOUS THROMBOSIS 2.0-3.0 PULMONARY EMBOLISM 2.0-3.0 PREVENTION OF SYSTEMIC EMBOLISM FROM: TISSUE HEART VALVES 2.0-3.0 ACUTE MYOCARDIAL INFARCTION 2.0-3.0 VALVULAR HEART DISEASE 2.0-3.0 ATRIAL FIBRILLATION 2.0-3.0 MECHANICAL VALVES(HIGH RISK) 2.5-3.5 RECURRENT MYOCARDIAL INFARCTION 2.5-3.5 Lab Order: Troponin; SPEC'06/29/16 14:44 Test: TROPONIN I; Value: < 0.02; Range: < 0.10; Units: NG/ML; Status: F Test Note: ; Troponin I Reference Interval for [employer] LOCI: 99th Percentile= 0.00-0.045 ng/ml Risk Stratification: <= 0.10 ng/ml Decreased Risk for Adverse Clinical Events. 0.10-1.50 ng/ml Increased Risk for Adverse Clinical Events. Evaluation of additional criterion and/or repeat testing in 2-6 hours is suggested to rule out myocardial damage. >= 1.50 ng/ml Indicative of Myocardial Injury. Lab Order: Urinalysis; SPEC'M 06/29/16 14:44 Test: APPEARANCE, URINE; Value: HAZY; Range: CLEAR; Status: F Test: COLOR, URINE; Value: YELLOW; Range: YELLOW; Status: F Test: PH,URINE; Value: 6.0; Range: 5.0-9.0; Units: UNITS; Status: F Test: SPECIFIC GRAVITY URINE AUTO; Value: 1.018; Range: 1.002-1.035; Status: F Test: PROTEIN, URINE AUTO; Value: NEGATIVE; Range: NEGATIVE; Units: mg/dL; Status: F Test: GLUCOSE, URINE (UA) AUTO; Value: NEGATIVE; Range: NEGATIVE; Units: mg/dL; Status: F Test: KETONE, URINE AUTO; Value: TRACE; Range: NEGATIVE; Abnormal: Above high normal; Units: mg/dL; Status: F Test: UROBILINOGEN, URINE AUTO; Value: 0.2; Range: 0.0-2.0; Units: mg/dL; Status: F Test: BILIRUBIN, URINE AUTO; Value: NEGATIVE; Range: NEGATIVE; Status: F Test: NITRITE, URINE AUTO; Value: NEGATIVE; Range: NEGATIVE; Status: F Test: LEUKOCYTE ESTERASE, URINE AUTO; Value: NEGATIVE; Range: NEGATIVE; Status: F Test: BLOOD, URINE BLOOD; Value: NEGATIVE; Range: NEGATIVE; Status: F Test: WBC, URINE AUTO; Value: 3; Range: 0-3; Units: /HPF; Status: F Test: RBC, URINE AUTO; Value: 17; Range: 0-3; Abnormal: Above high normal; Units: /HPF; Status: F Test: BACTERIA, URINE AUTO; Value: NEGATIVE; Range: NEGATIVE; Status: F Test: SQUAMOUS EPITHELIAL CELL UR AU; Value: 0; Range: 0-6; Units: /HPF; Status: F Test: MUCUS, URINE; Value: SMALL; Range: NEGATIVE; Status: F Test: HYALINE CAST, URINE AUTO; Value: 0; Range: 0-1; Units: /LPF; Status: F Outcome: 15:47 Discharge ordered by Provider. cc10 15:59 Discharge Assessment: Patient awake, alert and oriented x 3. No cognitive and/or ka4 functional deficits noted. Patient verbalized understanding of disposition instructions. patient administered narcotics - no. The following High Risk Discharge criteria are identified: None. Discharged to home ambulatory. Condition: good Condition: stable Condition: improved. Discharge instructions given to patient, Instructed on discharge instructions, follow up and referral plans. medication usage, Demonstrated understanding of instructions, medications, Pt was receptive of discharge instructions/ teaching. Prescriptions given X 1. No special radiology studies were completed. Property :Personal belongings accompany Pt. 16:02 Patient left the ED. ka4 Signatures: Edilma Romero, Reg Reg gb Landy Spencer,RN RN kr3 Ana BautistaRN RN rs3 Maryjane Stubbs,RN RN dsf Jody Moulton RN RN ttb Giuseppe Atkins gr2 Bandar Polk PA-C PA-Al cc10 Dian Rjoo LPN APPLICATIONS ENGINEER [employer]FA[employer]URING ka4 Kingsley Miguel rn1 Katherine Barroso Chart Complete MTDD
== END 2016-06-29 16:02 | disposition home or self-care (01) ==
LOC: M ED 12:37
DX: K29.70 Gastritis, unspecified, without bleeding (principal); E78.00 Pure hypercholesterolemia, unspecified; M19.90 Unspecified osteoarthritis, unspecified site; Z79.899 Other long term (current) drug therapy; Z91.030 Bee allergy status
CPT/HCPCS: 36415; 80048; 80076; 81001; 82550; 82553; 83690; 85025; 85610; 85730; 96374; 99284; J2405

== ENCOUNTER → 2017-02-28 | Outpatient (CLI) | payer OTHER ==
[~2017-02-28] MED LIST: ADVI200C5 PO; AFRI0.056; ALBU83IN INH; AZEL0.1S3; COUM2.5T17 PO; CRES40TA PO; EPIP0.3I2 IM; PERC5TAB12 PO; TEMO0.0520 TOP; TUMS500C PO; ZANTTAB PO
[2017-02-28 11:59] LABS: INR 0.96
[2017-02-28 12:14] LABS: MEAN CORPUSCULAR HEMOGLOBIN 31.4 pg (27.0-33.0); MEAN CORPUSCULAR HGB CONC 34.1 g/dl (32.0-36.5); MEAN CORPUSCULAR VOLUME 92.2 fl (80.0-96.0); RED CELL DISTRIBUTION WIDTH 12.4 % (11.5-14.5); WHITE BLOOD COUNT 5.3 K/mm3 (4.0-10.0)
--- NOTE | 2017-02-28 12:20 | REP ---
Chest two views HISTORY: Preop Comparison: 12/02/2009 The lungs are clear. The heart is normal in size. The pulmonary vasculature is normal in appearance. Degenerative change is present in the thoracic spine. IMPRESSION: No acute disease. Signed by Fam Teixeira MD 02/28/2017 12:11 P
[2017-02-28 12:38] LABS: ALBUMIN 3.9 GM/DL (3.2-5.2); ALBUMIN/GLOBULIN RATIO 1.11 (1.00-1.93); ALKALINE PHOSPHATASE 79 U/L (45-117); ALT/SGPT 33 U/L (12-78); ANION GAP 11 MEQ/L (8-16); AST/SGOT 22 U/L (15-37); BILIRUBIN,TOTAL 0.6 MG/DL (0.2-1.0); BLOOD UREA NITROGEN 14 MG/DL (7-18); CALCIUM LEVEL 8.9 MG/DL (8.8-10.2); CARBON DIOXIDE LEVEL 26 MEQ/L (21-32); CHLORIDE LEVEL 106 MEQ/L (98-107); CREATININE FOR GFR 0.97 MG/DL (0.70-1.30); GLOMERULAR FILTRATION RATE > 60.0 (>49); GLUCOSE, FASTING 87 MG/DL (80-110); POTASSIUM SERUM 4.4 MEQ/L (3.5-5.1); SODIUM LEVEL 143 MEQ/L (136-145); TOTAL PROTEIN 7.4 GM/DL (6.4-8.2)
--- NOTE | 2017-02-28 18:26 | ECGEPIP ---
Stationary ECG Study [facility] Test Date: 2017-02-28 Pat Name: HEATHER CHOI Department: Room: - Gender: M Operator Maintainer: : 1955 Requested By: Kim Barnett Order Number: [id number] Reading MD: Joel Majano Measurements Intervals [place] Rate: 68 P: 90 SD: 126 QRS: 44 QRSD: 100 T: 43 QT: 393 QTc: 419 Interpretive Statements Normal sinus rhythm Nonspecific T-wave abnormality No significant change since prior tracing of 01/21/2015 Electronically Signed On 02-28-2017 18:25:42 EDT by Joel Majano
== END ==
LOC: M ADMPAT 10:27
PROVIDERS: ATTEND Orthopaedic Surgery
DX: M17.11 Unilateral primary osteoarthritis, right knee (principal)

== ENCOUNTER 2017-03-12 07:30 | Inpatient (IN) | payer OTHER ==
[2017-02-28 11:21] VITALS: BP 130/90
--- NOTE | 2017-03-08 09:52 | HPE ---
DATE OF ADMISSION: 03/12/2017 ADMITTING DIAGNOSIS: Symptomatic right knee osteoarthritis. The patient presents with continuing symptomatic right knee osteoarthritis. He has consented for a right total knee arthroplasty per Dr. Anibal Upton. Medical optimization per MARYURI Griffiths. X-rays are consistent with advanced osteoarthritis. ALLERGIES: BEE STINGS: NO KNOWN DRUG ALLERGIES. MEDICAL PROBLEM LIST: 1. Bilateral knee osteoarthritis. 2. Obstructive sleep apnea. 3. Essential hypertension. 4. Obesity. 5. Asymptomatic bilateral lower extremity varicose veins. MEDICATION LIST: Includes: - Cialis 20 mg - EpiPen 2-Jay 0.3 mg/0.3 mg - Temovate 0.05% - Crestor 40 mg - Zantac 300 mg - levocetirizine dihydrochloride 5 mg SURGICAL HISTORY: Hernia repair 2009 left inguinal, Dr. Thomas, vasectomy, carpal tunnel release 2016 left with ulnar relocation. Trigger finger 2004, right middle finger. FAMILY HISTORY: None for anesthesia. Brother - skin cancer and hypercholesteremia. Father - pancreatic cancer at 62. Mother of organ failure alcoholic kidney failure. SOCIAL HISTORY: He is . Never smoked. Rarely consumes alcohol. Exercises three times a week 30 minutes at the gym. REVIEW OF SYSTEMS: Denies chest pain, shortness of breath, dyspnea on exertion, fever, chills, malaise, upper respiratory or urinary tract symptoms. PHYSICAL EXAMINATION: Weight 318. Height 6, 3. Temperature 96.4. Pulse 76. Respirations 20. His initial blood pressure (BP) was 158/100 per nurse. I rechecked that and it was 125/75, which is more towards his normal standard. I would like him keep an eye on it and if it elevates he needs to his primary care physician. This is a pleasant, obese male in no acute distress. He is alert and times three. Mood and affect are appropriate. He is ambulating without overt antalgia, favoring the lower left lower extremity is noted. Right knee benign, noninfectious looking, not hot to touch. He has an old noted healed scar site. He has bilateral lower extremity diffuse varicosities. Bowel sounds times four, soft, nontender. Chest rises symmetrically. Lungs clear to auscultation. Neck supple. Negative jugular venous distention (JVD) or bruits. Normocephalic. Lab and diagnostics were reviewed, unremarkable. Chest x-ray and EKG unremarkable. IMPRESSION: 1. Symptomatic right knee osteoarthritis. 2. Patient consented for right total knee arthroplasty per Dr. Anibal Upton. 3. Medical optimization per MARYURI Griffiths. 4. On-call to operating room (OR) 2 grams IV Kefzol in OR. 5. Sequential compressive device (SCD) and thromboembolism deterrents (TEDs) in OR. 6. Noted patient has obstructive sleep apnea and should have oximetry monitoring postoperatively. MTDD
[~2017-03-12] VITALS: Ht 190.5 cm; Wt 145.2 kg
[2017-03-12] VITALS (7 sets, daily range): BP systolic 125–130; BP diastolic 62–83; O2SAT 94
[~2017-03-12 07:30] MED LIST changes: -COUM2.5T17 PO; -PERC5TAB12 PO
[2017-03-12] MEDS: ROSUVASTATIN 10 MG TAB (CRESTOR) PO SCH (09:00)
[2017-03-12] MEDS ORDERED: EPINEPHrine INJ 1 MG/ML 1ML AMP As Ordered ONE (11:23)
[2017-03-12] MEDS ORDERED: ceFAZolin 1GM INJ (J0690) As Ordered ONE (11:23)
[2017-03-12] MEDS ORDERED: BUPIVACAINE LIPOSOME/PF 1.3% 20 ML VIAL (13.3MG/ML)(EXPAREL) As Ordered ONE (11:23)
[2017-03-12] MEDS ORDERED: TRANEXAMIC ACID 100 MG/ML 10ML VIAL As Ordered ONE (11:23)
[2017-03-12] MEDS ORDERED: LR 1,000 ML IV ONE (12:00)
[2017-03-12] MEDS ORDERED: ACETAMINOPHEN 500 MG TAB PO ONE (12:00)
[2017-03-12] MEDS ORDERED: MIDAZOLAM INJ 2 MG/2 ML VIAL (J2250) As Ordered ONE ×2 (13:24→14:56)
[2017-03-12] MEDS ORDERED: fentaNYL 100 MCG/2 ML INJECTION (J3010) As Ordered ONE ×2 (13:24→14:56)
[2017-03-12] MEDS ORDERED: fentaNYL 100 MCG/2 ML INJECTION (J3010) IV PRN ×2 (14:15→16:45)
[2017-03-12] MEDS ORDERED: MIDAZOLAM INJ 2 MG/2 ML VIAL (J2250) IV PRN (14:15)
[2017-03-12] MEDS ORDERED: ONDANSETRON 4MG/2ML VIAL (J2405) As Ordered ONE (14:56)
[2017-03-12] MEDS ORDERED: PROPOFOL 200 MG/20 ML VIAL As Ordered ONE (14:57)
[2017-03-12] MEDS ORDERED: LIDOCAINE 2% INJ 100 MG/5 ML SDV (FOR ANES.) As Ordered ONE (14:57)
[2017-03-12] MEDS ORDERED: dexameTHASONE 4 MG/ML 1ML VIAL (J1100) As Ordered ONE (14:57)
[2017-03-12] MEDS ORDERED: FLEET ENEMA PR PRN (16:45)
[2017-03-12] MEDS ORDERED: ACETAMINOPHEN TAB 650MG DOSE (2X325MG) PO PRN (16:45)
[2017-03-12] MEDS: LR 1,000 ML IV SCH (16:45)
[2017-03-12] MEDS ORDERED: MORPHINE 1MG/ML IN 0.9% NACL 100ML IV BAG IV PRN (16:45)
[2017-03-12] MEDS ORDERED: NALBUPHINE HCL 10 MG/ML AMP (J2300) IV PRN (16:45)
[2017-03-12] MEDS ORDERED: NALOXONE INJ 0.4 MG/1 ML VIAL (J2310) IV PRN (16:45)
[2017-03-12] MEDS ORDERED: LR 1,000 ML IV SCH (16:45)
[2017-03-12] MEDS ORDERED: diphenhydrAMINE INJ 50MG/ML VIAL (J1200) IV PRN (16:45)
[2017-03-12] MEDS ORDERED: ONDANSETRON 4MG/2ML VIAL (J2405) IV PRN ×2 (16:45)
[2017-03-12] MEDS ORDERED: EPIDURAL/PCA KEYS XX PRN (16:45)
--- NOTE | 2017-03-12 16:57 | CR ---
DATE OF CONSULTATION: 03/12/2017 CONSULTATION REQUESTED BY: Dr. Anibal Upton PRIMARY CARE PROVIDER: Dr. Ambrosio Ramos/Ana Cristina Mcclure NP [facility] ATTENDANT: Dr. Lui Singh, effective 03/13/2017. PROCEDURE: Right total knee. HISTORY: Mr. Stover was seen postoperatively. He has a history of obstructive sleep apnea (KARLENE), hypertension, hyperlipidemia. Denies any current chest pain, shortness of breath, dizziness, and his pain is under good control. His preoperative consultation was done 03/02/2017 and it was reviewed. MEDICATIONS: - Zantac 30 mg - Crestor 40 mg - Cialis 20 mg as needed - Zyrtec 5 mg ALLERGIES: None to any medicines. REVIEW OF SYSTEMS: As above. Patient has obstructive sleep apnea (KARLENE). Does not wear his continuous positive airway pressure (CPAP) consistently. He did bring it to the hospital, but says he does not use it. SURGICAL HISTORY: 1. Hernia repair, left inguinal. 2. Vasectomy. 3. Carpal tunnel, left side, right middle trigger finger 4. Tonsillectomy PHYSICAL EXAMINATION: VITAL SIGNS: Postoperative flow sheet. He is alert, conversant. HEENT: Unremarkable. LUNGS: Clear. HEART: Regular rate and rhythm. ABDOMEN: Soft, nontender. IMPRESSION: 1. Hyperlipidemia. Continue Crestor 40 mg daily. 2. Obstructive sleep apnea (KARLENE). Try to use his continuous positive airway pressure (CPAP). 3. Gastroesophageal reflux disease (GERD). Continue Zantac [address] Singh will assume his medical care in the morning.
[2017-03-12] MEDS ORDERED: FAMOTIDINE 20 MG TAB PO PRN (17:00)
--- NOTE | 2017-03-12 19:01 | RO ---
DATE OF PROCEDURE: 03/12/2017 PREPROCEDURE DIAGNOSIS: Right knee degenerative arthritis. POSTPROCEDURE DIAGNOSIS: Right knee degenerative arthritis. PROCEDURE: Right total knee arthroplasty using a size 5 cruciate-retaining femoral component, size 5 tibial tray with a 10 mm rotating platform polyethylene insert with a 38 mm polyethylene button. All components were cemented. Prosthesis was made by [employer]. It was a PFC knee. SURGEON: Dr. Kim Upton DINING ROOM SERVER: Mr. Celestino Courtney ANESTHESIA: Spinal with right femoral nerve block. COMPLICATIONS: None. ESTIMATED BLOOD LOSS: Less than 20 mL. SPECIMENS: Joint surface. DESCRIPTION OF PROCEDURE: Antibiotics were given intravenously preoperatively, then a successful right femoral nerve block, and then a spinal anesthetic was induced and a tourniquet was placed on the right upper thigh and not inflated. The right lower extremity was prepped and draped in the usual sterile fashion. After appropriate time-out, the leg was elevated, and the tourniquet was inflated to 250 mmHg for 75 minutes. A longitudinal incision was then made for a medial parapatellar approach to the knee. Bovie cautery was used to coagulate the crossing vessels. I stayed lateral to the previous medial incision from his previous medial open meniscectomy. I subperiosteally dissected around the proximal, medial and tibial plateaus. I then was able to jass the patella and flex the knee and excise the anterior cruciate ligament (ACL), then expose the distal femur. The juju was placed down the center of the femoral canal. The distal femoral cutting jig was set at 5 degree valgus for a right knee at 10 mm resection level. Because he was quite large and the guide sat off the lateral femoral condyle a bit, I took an extra 2 mm from the distal femur, also because of his flexion contracture. The distal femoral cut was then performed and the AP sizing jig measured right on on size #5. However, he was very wide femur but anterior to posterior, it measured 5, so I had to use a size 5 cutting jig. Thus, at this point, the 3 degree external rotation jig was drilled for, followed by the 4-in-1 block attached to the distal femur. I double checked the rotation; it appeared to be parallel to epicondylar axis and 90 degrees to the epicondylar axis was [facility] line and they all appeared to be normal. Thus, at this point, I performed the anterior, posterior and chamfer cuts, taking great care to protect the surrounding soft tissues. I then exposed the proximal tibia, used the extramedullary tibial alignment jig to estimate being parallel to the mechanical axis. I then referenced off the medial tibial and lateral condyles at 4 mm, took about the same given he had overall a neutral alignment on the preoperative AP x-ray. I pinned the block into position and then used the extramedullary juju to secondarily check that we appeared to be parallel to the mechanical axis of the tibia. A proximal tibial osteotomy was then performed. We then placed the lamina gas plant specialist medially and performed a completion lateral meniscectomy and debridement of the posterolateral osteophytes. I then placed the lamina gas plant specialist laterally and performed a completion medial meniscectomy and debridement of the posteromedial osteophytes. A spacer block 10 mm actually fit well and with good symmetry in terms of stability to varus/valgus stress testing, both in flexion and in extension. Thus, I felt this would be probably the appropriate size. Thus, at this point, we exposed the proximal tibia, sized for a #5. He was between a 5 and a 6, but a 6 overhung a bit laterally thus the size number was going to overhang a bit more laterally. Thus, I settled on the size 5 tibial tray, which was then pinned into position, followed by the reamer and broach, then the trial polyethylene, then the trial femoral component. He had good flexion and extension ability as well as stability to varus/valgus stress testing both in flexion and in extension. We then extended the knee, everted the patella, performed patellar osteotomy, sized for a 38 button, lug holes drilled. Patellofemoral tracking was actually just about anatomic. There was a slight tendency for lateral translation; thus, I performed a relatively superficial lateral release, not a formal lateral release and this helped improve bringing the patella over centrally. I then drilled the lug holes for the femur, removed all of the trial components, placed Exparel in the posterior aspect of the knee joint, as well as medially and laterally and in the periosteum medially and laterally of the femur. Then, Mr. Celestino Courtney mixed the cement on the back table as I prepared the bony surfaces for cementing with a copious amount of pulsatile lavage irrigant solution. Mr. Courtney was also critical to the success of the procedure by helping to manipulate this very large leg in flexion and extension, helped with appropriate soft tissue retraction, so I could perform the operation smoothly and efficiently. Once all the bony surfaces were thoroughly dried and cleaned, we cemented the tibial tray, removed the excess cement, then placed the polyethylene and cemented the femoral component, removed the excess cement, brought the knee into extension, everted the patella and then cemented the patellar component, held the component with a clamp, and removed all excess cement, until the cement had hardened. While we were awaiting, we copiously pulsatile lavage irrigated out the knee joint once again and then placed the tranexamic acid, then began closing the arthrotomy at the apex with two #1 PDS sutures. I closed the medial parapatellar area with a #1 PDS suture. Flexion and extension of the knee at this point showed the patellofemoral tracking was anatomic. The remaining portion of the Exparel in the capsular edges was placed, then I closed the arthrotomy with a double-armed #1 PDS Stratafix suture, let the tourniquet down at this point, irrigated again, closed the deep subdermal tissues with interrupted #2-0 PDS suture, skin was closed with raya, covered by Adaptic dry sterile bulky dressing. He was then transferred to the recovery room in stable condition. There were no intraoperative complications.
[2017-03-12] MEDS ORDERED: WARFARIN SOD 5 MG TAB PO ONE (21:00)
[2017-03-13 02:00] VITALS: BP 161/82
[2017-03-13] MEDS: LR 1,000 ML IV SCH (05:15)
[2017-03-13 06:00] VITALS: BP 145/86
[2017-03-13 07:11] LABS: MEAN CORPUSCULAR HEMOGLOBIN 31.4 pg (27.0-33.0); MEAN CORPUSCULAR HGB CONC 34.2 g/dl (32.0-36.5); MEAN CORPUSCULAR VOLUME 91.7 fl (80.0-96.0); RED CELL DISTRIBUTION WIDTH 12.5 % (11.5-14.5); WHITE BLOOD COUNT 13.1 K/mm3 (4.0-10.0)
[2017-03-13 07:14] LABS: INR 1.07
[2017-03-13 07:28] LABS: ANION GAP 5 MEQ/L (8-16); BLOOD UREA NITROGEN 16 MG/DL (7-18); CALCIUM LEVEL 8.5 MG/DL (8.8-10.2); CARBON DIOXIDE LEVEL 28 MEQ/L (21-32); CHLORIDE LEVEL 105 MEQ/L (98-107); CREATININE FOR GFR 0.95 MG/DL (0.70-1.30); GLOMERULAR FILTRATION RATE > 60.0 (>49); GLUCOSE, FASTING 128 MG/DL (80-110); POTASSIUM SERUM 4.3 MEQ/L (3.5-5.1); SODIUM LEVEL 138 MEQ/L (136-145)
[2017-03-13] MEDS: MIRALAX *UNIT DOSE* 17GM PACKET PO SCH (08:04)
[2017-03-13] MEDS: ROSUVASTATIN 10 MG TAB (CRESTOR) PO SCH (08:05)
[2017-03-13] MEDS: MOM 30ML SUSPENSION UDC PO SCH (08:05)
[2017-03-13] MEDS: SENOKOT S TAB PO SCH ×2 (08:06→20:11)
[2017-03-13] MEDS: PERCOCET 5MG/325MG TAB PO PRN ×3 (09:47→22:03)
--- NOTE | 2017-03-13 09:59 | REP ---
Right knee three views postoperative study: There is a total knee arthroplasty. The components are tightly applied and in satisfactory positions alignment on all views. Skin raya are incidentally noted. Signed by Dante White MD 03/13/2017 09:51 A
[2017-03-13 10:00] VITALS: BP 120/82
[2017-03-13 14:00] VITALS: BP 136/76
--- NOTE | 2017-03-13 14:09 | IPNPDOC ---
Text Note Date of Service The patient was seen on 03/13/17. NOTE Subjective: Patient feels well. Denies any complaints. Denies chest pain/ shortness of breath/palpitations. Objective: Vitals: (see below) General: No acute distress, laying comfortably in bed. HEENT: Moist mucous membranes. Neck: No JVD or lymphadenopathy Cardiac: RRR, No murmurs Pulm: Clear to auscultation b/l. No wheezing, rhonchi Abd: NT/ND + BS Ext: No edema or cyanosis. Right knee with Michel wrap. Distal pulses intact. Labs (see below) Images: Assessment/Plan 1. Postop day 1 status post total knee- management per orthopedics 2. Hypertension- controlled 3. Hyperlipidemia- continue statin 4. Obstructive sleep apnea- continue CPAP 5. GERD- continue Zantac DVT prophylaxis- per orthopedics VS,Fishbone, I+O VS, Fishbone, I+O Laboratory Tests 03/13/17 06:41 Red Blood Count 4.21 L, Mean Corpuscular Volume 91.7, Mean Corpuscular Hemoglobin 31.4, Mean Corpuscular Hemoglobin Concent 34.2, Red Cell Distribution Width 12.5, Calcium Level 8.5 L Vital Signs Date Time Temp Pulse Resp B/P (MAP) Pulse Ox O2 Delivery O2 Flow Rate FiO2 03/13/17 10:37 18 03/13/17 10:00 98.3 100 120/82 (95) 96 Room Air 03/12/17 21:15 2.0 I&O- Last 24 Hours up to 6 AM 03/13/17 06:00 Intake Total 2180 ml Output Total 725 ml Balance 1455 ml BECKIE POLO MD Mar 13, 2017 14:09
[2017-03-13] MEDS ORDERED: WARFARIN SOD 5 MG TAB PO ONE (17:00)
[2017-03-13 22:00] VITALS: BP 145/76
[2017-03-14] MEDS: PERCOCET 5MG/325MG TAB PO PRN ×4 (02:12→18:55)
[2017-03-14 06:00] VITALS: BP 139/64
[2017-03-14 07:10] LABS: INR 1.18
[2017-03-14 07:12] LABS: MEAN CORPUSCULAR HEMOGLOBIN 31.2 pg (27.0-33.0); MEAN CORPUSCULAR HGB CONC 34.1 g/dl (32.0-36.5); MEAN CORPUSCULAR VOLUME 91.4 fl (80.0-96.0); RED CELL DISTRIBUTION WIDTH 12.8 % (11.5-14.5); WHITE BLOOD COUNT 10.1 K/mm3 (4.0-10.0)
[2017-03-14 07:16] LABS: ANION GAP 5 MEQ/L (8-16); BLOOD UREA NITROGEN 16 MG/DL (7-18); CALCIUM LEVEL 8.5 MG/DL (8.8-10.2); CARBON DIOXIDE LEVEL 30 MEQ/L (21-32); CHLORIDE LEVEL 104 MEQ/L (98-107); CREATININE FOR GFR 0.86 MG/DL (0.70-1.30); GLOMERULAR FILTRATION RATE > 60.0 (>49); GLUCOSE, FASTING 106 MG/DL (80-110); SODIUM LEVEL 139 MEQ/L (136-145)
[2017-03-14] MEDS: MOM 30ML SUSPENSION UDC PO SCH (07:48)
[2017-03-14] MEDS: MIRALAX *UNIT DOSE* 17GM PACKET PO SCH ×2 (07:48→21:32)
[2017-03-14] MEDS: ROSUVASTATIN 10 MG TAB (CRESTOR) PO SCH (07:49)
[2017-03-14] MEDS: SENOKOT S TAB PO SCH ×2 (07:49→21:32)
[2017-03-14] MEDS ORDERED: INFLUENZA QUADRIVALENT PF VACCINE 0.5ML SYRINGE (90686) IM ONE (09:00)
[2017-03-14 14:00] VITALS: BP 149/52
--- NOTE | 2017-03-14 16:26 | IPNPDOC ---
Text Note Date of Service The patient was seen on 03/14/17. NOTE Subjective: Patient feels well. Denies any complaints. Feels constipated. Objective: Vitals: (see below) General: No acute distress, laying comfortably in bed. HEENT: Moist mucous membranes. Neck: No JVD or lymphadenopathy Cardiac: RRR, No murmurs Pulm: Clear to auscultation b/l. No wheezing, rhonchi Abd: NT/ND + BS Ext: No edema or cyanosis. Right knee with Michel wrap. Distal pulses intact. Labs (see below) Images: Assessment/Plan 1. Postop day 1 status post total knee- management per orthopedics 2. Hypertension- controlled 3. Hyperlipidemia- continue statin 4. Obstructive sleep apnea- continue CPAP 5. GERD- continue Zantac 6. Constipation - bowel regimen optimized DVT prophylaxis- per orthopedics VS,Fishbone, I+O VS, Fishbone, I+O Laboratory Tests 03/14/17 06:42 Red Blood Count 3.98 L, Mean Corpuscular Volume 91.4, Mean Corpuscular Hemoglobin 31.2, Mean Corpuscular Hemoglobin Concent 34.1, Red Cell Distribution Width 12.8, Calcium Level 8.5 L Vital Signs Date Time Temp Pulse Resp B/P (MAP) Pulse Ox O2 Delivery O2 Flow Rate FiO2 03/14/17 14:00 97.8 96 17 149/52 (84) 94 Room Air 03/12/17 21:15 2.0 I&O- Last 24 Hours up to 6 AM 03/15/17 05:59 Intake Total 720 ml Output Total 900 ml Balance -180 ml BECKIE POLO MD Mar 14, 2017 16:26
[2017-03-14] MEDS ORDERED: MOM 30ML SUSPENSION UDC PO PRN (16:30)
[2017-03-14] MEDS ORDERED: WARFARIN SOD 5 MG TAB PO ONE ×2 (17:00)
[2017-03-14 22:00] VITALS: BP 167/74
[2017-03-15] MEDS: PERCOCET 5MG/325MG TAB PO PRN ×2 (01:10→11:03)
[2017-03-15 06:00] VITALS: BP 167/77
[2017-03-15 06:54] LABS: MEAN CORPUSCULAR HEMOGLOBIN 31.7 pg (27.0-33.0); MEAN CORPUSCULAR HGB CONC 34.4 g/dl (32.0-36.5); MEAN CORPUSCULAR VOLUME 91.9 fl (80.0-96.0); RED CELL DISTRIBUTION WIDTH 12.8 % (11.5-14.5); WHITE BLOOD COUNT 7.2 K/mm3 (4.0-10.0)
[2017-03-15 06:55] LABS: INR 1.23
[2017-03-15 07:05] LABS: ANION GAP 8 MEQ/L (8-16); BLOOD UREA NITROGEN 14 MG/DL (7-18); CALCIUM LEVEL 8.6 MG/DL (8.8-10.2); CARBON DIOXIDE LEVEL 28 MEQ/L (21-32); CHLORIDE LEVEL 106 MEQ/L (98-107); GLOMERULAR FILTRATION RATE > 60.0 (>49); GLUCOSE, FASTING 101 MG/DL (80-110); POTASSIUM SERUM 3.9 MEQ/L (3.5-5.1); SODIUM LEVEL 142 MEQ/L (136-145)
[2017-03-15] MEDS ORDERED: PERC5TAB12 PO (08:30)
[2017-03-15] MEDS ORDERED: COUM2.5T17 PO (08:30)
[2017-03-15] MEDS ORDERED: MAGNESIUM CITRATE 300 ML BTL PO ONE (09:15)
[2017-03-15] MEDS: MIRALAX *UNIT DOSE* 17GM PACKET PO SCH (09:49)
[2017-03-15] MEDS: SENOKOT S TAB PO SCH (09:49)
[2017-03-15] MEDS: ROSUVASTATIN 10 MG TAB (CRESTOR) PO SCH (09:49)
--- NOTE | 2017-03-15 14:52 | IPNPDOC ---
Text Note Date of Service The patient was seen on 03/15/17. NOTE Subjective: Patient feels well. Denies any complaints. Feels constipated. Objective: Vitals: (see below) General: No acute distress, laying comfortably in bed. HEENT: Moist mucous membranes. Neck: No JVD or lymphadenopathy Cardiac: RRR, No murmurs Pulm: Clear to auscultation b/l. No wheezing, rhonchi Abd: NT/ND + BS Ext: No edema or cyanosis. Right knee with Michel wrap. Distal pulses intact. Labs (see below) Images: Assessment/Plan 1. Postop day 2 status post total knee- management per orthopedics 2. Hypertension- controlled 3. Hyperlipidemia- continue statin 4. Obstructive sleep apnea- continue CPAP 5. GERD- continue Zantac 6. Constipation - bowel regimen optimized. Add Mg citrate. DVT prophylaxis- per orthopedics VS,Fishbone, I+O VS, Fishbone, I+O Laboratory Tests 03/15/17 06:23 Red Blood Count 3.92 L, Mean Corpuscular Volume 91.9, Mean Corpuscular Hemoglobin 31.7, Mean Corpuscular Hemoglobin Concent 34.4, Red Cell Distribution Width 12.8, Calcium Level 8.6 L Vital Signs Date Time Temp Pulse Resp B/P (MAP) Pulse Ox O2 Delivery O2 Flow Rate FiO2 03/15/17 11:36 Room Air 03/15/17 11:33 16 03/15/17 06:00 98.2 83 167/77 (107) 96 03/12/17 21:15 2.0 I&O- Last 24 Hours up to 6 AM 03/16/17 05:59 Intake Total 840 ml Output Total 1200 ml Balance -360 ml BECKIE POLO MD Mar 15, 2017 14:52
--- NOTE | 2017-03-21 10:51 | DSES ---
DATE OF ADMISSION: 03/12/2017 DATE OF DISCHARGE: 03/15/2017 ATTENDING: Dr. Anibal Upton ADMITTING DIAGNOSIS: Osteoarthritis right knee. OTHER DIAGNOSES: Sleep apnea. Hypertension. Elevated lipids. DISCHARGE DIAGNOSIS: Osteoarthritis right knee status post right total knee arthroplasty. OPERATION PERFORMED: Right total knee arthroplasty. HISTORY: This is a pleasant, 62-year-old male patient with progressively worsening right knee pain and stiffness. He failed to improve with conservative management. He was admitted for elective knee replacement on the right side. HOSPITAL COURSE: The patient was admitted on day of surgery, underwent a right total knee arthroplasty, which was uneventful. He did well in the postoperative period. His hospital course was without complications. He was up with physical therapy per their protocol and his pain was controlled. On day of discharge, he was doing well weightbearing as tolerated on his right lower extremity. He will move his right knee to prevent stiffness. He will use adjusted dose Coumadin and thromboembolic deterrent (DONYA) stockings for 30 days postoperative for deep venous thrombosis (DVT) prophylaxis. He will resume his preoperative medications and diet. He was given instructions to include but not limited to wound monitoring and activity limitations. He will followup in our office in 10-14 days for surgical followup. Please refer to the medical record for further details.
== END 2017-03-15 12:15 | disposition home health service (06) | DRG 470 ==
LOC: M OR 11:50 → M MS5PR 17:50
PROVIDERS: ADMIT Orthopaedic Surgery; ATTEND Orthopaedic Surgery
PROC: 0SRC0J9 Replacement of Right Knee Joint with Synthetic Substitute, Cemented, Open Approach (ICD-10-PCS; principal; 2017-03-12 14:00)
DX: M17.11 Unilateral primary osteoarthritis, right knee (principal); G47.33 Obstructive sleep apnea (adult) (pediatric); I10 Essential (primary) hypertension; E66.9 Obesity, unspecified; Z79.899 Other long term (current) drug therapy; I83.93 Asymptomatic varicose veins of bilateral lower extremities; K21.9 Gastro-esophageal reflux disease without esophagitis; E78.5 Hyperlipidemia, unspecified; K59.00 Constipation, unspecified

== ENCOUNTER → 2017-03-26 | Outpatient (REF) | payer OTHER ==
[~2017-03-26] MED LIST changes: +COUM2.5T17 PO; +PERC5TAB12 PO
[2017-03-26 13:25] LABS: INR 1.63
== END ==
LOC: M LAB REF 13:08
PROVIDERS: ATTEND Nurse Practitioner Family
DX: Z79.01 Long term (current) use of anticoagulants (principal)

== ENCOUNTER → 2017-04-04 | Outpatient (CLI) | payer OTHER ==
--- NOTE | 2017-04-04 17:52 | REP ---
Right lower extremity deep vein duplex ultrasound, stat request: The deep veins demonstrate normal compression, normal Doppler color flow and normal Doppler waveforms with respiration augmentation at multiple levels from the popliteal vein to the common femoral vein. Impression: No evidence of deep vein thrombus. Signed by Dante White MD 04/04/2017 05:43 P
== END ==
LOC: M RAD 17:13
PROVIDERS: ATTEND Physician Assistant
DX: Z47.89 Encounter for other orthopedic aftercare (principal)

== ENCOUNTER → 2017-04-05 | Outpatient (REF) | payer OTHER ==
[2017-04-05 16:10] LABS: INR 1.51
== END ==
LOC: M LABDRAW1 15:35
PROVIDERS: ATTEND Orthopaedic Surgery
DX: Z79.01 Long term (current) use of anticoagulants (principal); Z47.1 Aftercare following joint replacement surgery

== ENCOUNTER → 2017-04-09 | Outpatient (REF) | payer OTHER ==
[2017-04-09 13:23] LABS: INR 1.66
== END ==
LOC: M LABDRAW1 11:29
PROVIDERS: ATTEND Orthopaedic Surgery
DX: Z47.1 Aftercare following joint replacement surgery (principal); Z79.01 Long term (current) use of anticoagulants

== ENCOUNTER → 2017-10-24 | Outpatient (CLI) | payer OTHER ==
[2017-10-24 10:49] LABS: HEMATOCRIT 43.7 % (42.0-52.0); HEMOGLOBIN 14.5 g/dl (13.5-17.5); MEAN CORPUSCULAR HEMOGLOBIN 30.5 pg (27.0-33.0); MEAN CORPUSCULAR HGB CONC 33.2 g/dl (32.0-36.5); PLATELET COUNT, AUTOMATED 224 10^3/uL (150-450); RED BLOOD COUNT 4.75 10^6/uL (4.30-6.10); RED CELL DISTRIBUTION WIDTH 13.2 % (11.5-14.5); WHITE BLOOD COUNT 5.3 10^3/uL (4.0-10.0)
[2017-10-24 10:54] LABS: APPEARANCE, URINE CLEAR (CLEAR); BACTERIA, URINE AUTO NEGATIVE (NEGATIVE); BILIRUBIN, URINE AUTO NEGATIVE (NEGATIVE); BLOOD, URINE BLOOD NEGATIVE (NEGATIVE); COLOR, URINE YELLOW (YELLOW); GLUCOSE, URINE (UA) AUTO NEGATIVE (NEGATIVE); KETONE, URINE AUTO NEGATIVE (NEGATIVE); LEUKOCYTE ESTERASE, URINE AUTO NEGATIVE (NEGATIVE); NITRITE, URINE AUTO NEGATIVE (NEGATIVE); PROTEIN, URINE AUTO NEGATIVE (NEGATIVE); RBC, URINE AUTO 2 /HPF (0-3); SPECIFIC GRAVITY URINE AUTO 1.017 (1.002-1.035); SQUAMOUS EPITHELIAL CELL UR AU 0 /HPF (0-6); UROBILINOGEN, URINE AUTO 0.2 mg/dL (0.0-2.0); WBC, URINE AUTO 0 /HPF (0-3)
[2017-10-24 11:01] LABS: INR 0.97
[2017-10-24 11:08] LABS: ALBUMIN 4.1 GM/DL (3.2-5.2); ALBUMIN/GLOBULIN RATIO 1.21 (1.00-1.93); ALKALINE PHOSPHATASE 88 U/L (45-117); ALT/SGPT 33 U/L (12-78); ANION GAP 7 MEQ/L (8-16); AST/SGOT 24 U/L (7-37); BILIRUBIN,TOTAL 0.6 MG/DL (0.2-1.0); BLOOD UREA NITROGEN 15 MG/DL (7-18); CALCIUM LEVEL 8.9 MG/DL (8.8-10.2); CARBON DIOXIDE LEVEL 28 MEQ/L (21-32); CHLORIDE LEVEL 107 MEQ/L (98-107); CREATININE FOR GFR 0.97 MG/DL (0.70-1.30); GLOMERULAR FILTRATION RATE > 60.0 (>49); GLUCOSE, FASTING 91 MG/DL (70-100); POTASSIUM SERUM 4.6 MEQ/L (3.5-5.1); SODIUM LEVEL 142 MEQ/L (136-145); TOTAL PROTEIN 7.5 GM/DL (6.4-8.2)
[2017-10-24 11:20] LABS: ERYTHROCYTE SEDIMENTATION RATE 30 mm/hr (0-20)
== END ==
LOC: M ADMPAT 09:17
DX: M17.12 Unilateral primary osteoarthritis, left knee (principal); Z79.01 Long term (current) use of anticoagulants
CPT/HCPCS: 71046

== ENCOUNTER 2017-11-13 09:02 | Inpatient (IN) | payer OTHER ==
[2017-11-13] MEDS ORDERED: LIDOCAINE 1% MDV 20ML VIAL SQ (09:15)
[2017-11-13] MEDS: BUPIVACAINE HCL 0.25% 10 ML VIAL As Ordered (09:48)
[2017-11-13] MEDS: ACETAMINOPHEN 500 MG TAB PO (10:10)
[2017-11-13] MEDS: LR 1,000 ML IV ×3 (10:11→18:50)
[2017-11-13] MEDS ORDERED: MIDAZOLAM INJ 2 MG/2 ML VIAL (J2250) As Ordered ×3 (10:32→12:29)
[2017-11-13] MEDS ORDERED: fentaNYL 100 MCG/2 ML INJECTION (J3010) As Ordered ×2 (10:32→10:33)
[2017-11-13] MEDS ORDERED: BUPIVACAINE/DEXTROSE 0.75% 2 ML AMP As Ordered (10:32)
[2017-11-13] MEDS ORDERED: PROPOFOL 200 MG/20 ML VIAL As Ordered ×5 (10:32→14:10)
[2017-11-13] MEDS: fentaNYL 100 MCG/2 ML INJECTION (J3010) IV (10:56)
[2017-11-13] MEDS: MIDAZOLAM INJ 2 MG/2 ML VIAL (J2250) IV (10:56)
[2017-11-13] MEDS ORDERED: ePHEDrine SULFATE 25 MG/5 ML(5MG/ML) SYRINGE As Ordered (12:56)
[2017-11-13] MEDS: TRANEXAMIC ACID 100 MG/ML 10ML VIAL As Ordered (13:03)
[2017-11-13] MEDS: EPINEPHrine INJ 1 MG/ML 1ML AMP As Ordered (13:03)
[2017-11-13] MEDS: ceFAZolin 1GM INJ (J0690 PER 500MG) As Ordered (13:04)
[2017-11-13] MEDS: BUPIVACAINE LIPOSOME/PF 1.3% 20 ML VIAL (13.3MG/ML)(EXPAREL) As Ordered (13:04)
[2017-11-13] MEDS ORDERED: KETOROLAC 60 MG/2 ML VIAL (J1885) As Ordered (13:38)
[2017-11-13] MEDS ORDERED: ONDANSETRON 4MG/2ML VIAL (J2405) As Ordered (13:38)
[2017-11-13] MEDS ORDERED: MORPHINE 1MG/ML IN 0.9% NACL 100ML IV BAG As Ordered (14:23)
[2017-11-13] MEDS ORDERED: dexameTHASONE 10 MG/1 ML VIAL PRES.FREE (J1100) (14:32)
[2017-11-13] MEDS ORDERED: EPINEPHrine INJ 1 MG/ML 1ML AMP (14:32)
[2017-11-13] MEDS ORDERED: ROPIvacaine 0.5% 30 ML INJECTION (J2795 PER 1MG) (14:32)
[2017-11-13] MEDS: MORPHINE 1MG/ML IN 0.9% NACL 100ML IV BAG IV (14:50)
[2017-11-13] MEDS ORDERED: ACETAMINOPHEN TAB 650MG DOSE (2X325MG) PO (15:00)
[2017-11-13] MEDS ORDERED: FLEET ENEMA PR (15:00)
[2017-11-13] MEDS ORDERED: diphenhydrAMINE INJ 50MG/ML VIAL (J1200) IV (15:15)
[2017-11-13] MEDS ORDERED: EPIDURAL/PCA KEYS XX (15:15)
[2017-11-13] MEDS ORDERED: NALBUPHINE HCL 10 MG/ML AMP (J2300) IV (15:15)
[2017-11-13] MEDS ORDERED: NALOXONE INJ 0.4 MG/1 ML VIAL (J2310) IV (15:15)
[2017-11-13] MEDS ORDERED: fentaNYL 100 MCG/2 ML INJECTION (J3010) IV (15:15)
[2017-11-13] MEDS ORDERED: ONDANSETRON 4MG/2ML VIAL (J2405) IV ×2 (15:15)
[2017-11-13] MEDS: ROSUVASTATIN 10 MG TAB (CRESTOR) PO (20:36)
[2017-11-14 06:43] LABS: HEMATOCRIT 37.1 % (42.0-52.0); HEMOGLOBIN 12.2 g/dl (13.5-17.5); MEAN CORPUSCULAR HEMOGLOBIN 30.3 pg (27.0-33.0); MEAN CORPUSCULAR HGB CONC 32.9 g/dl (32.0-36.5); MEAN CORPUSCULAR VOLUME 92.1 fl (80.0-96.0); PLATELET COUNT, AUTOMATED 195 10^3/uL (150-450); RED BLOOD COUNT 4.03 10^6/uL (4.30-6.10); RED CELL DISTRIBUTION WIDTH 13.2 % (11.5-14.5); WHITE BLOOD COUNT 9.8 10^3/uL (4.0-10.0)
[2017-11-14] MEDS ORDERED: ONDANSETRON 4 MG TAB (S0181) PO (06:45)
[2017-11-14] MEDS ORDERED: PERCOCET 5MG/325MG TAB PO (06:45)
[2017-11-14 07:03] LABS: ANION GAP 6 MEQ/L (8-16); BLOOD UREA NITROGEN 16 MG/DL (7-18); CALCIUM LEVEL 8.3 MG/DL (8.8-10.2); CARBON DIOXIDE LEVEL 27 MEQ/L (21-32); CHLORIDE LEVEL 106 MEQ/L (98-107); CREATININE FOR GFR 0.95 MG/DL (0.70-1.30); GLOMERULAR FILTRATION RATE > 60.0 (>49); GLUCOSE, FASTING 113 MG/DL (70-100); POTASSIUM SERUM 4.2 MEQ/L (3.5-5.1); SODIUM LEVEL 139 MEQ/L (136-145)
[2017-11-14] MEDS ORDERED: SENOKOT S TAB PO (09:00)
[2017-11-14] MEDS: SENOKOT S TAB PO ×2 (09:51→19:53)
[2017-11-14] MEDS: MOM 30ML SUSPENSION UDC PO (09:51)
[2017-11-14] MEDS: LISINOPRIL 10 MG TAB PO (09:52)
[2017-11-14] MEDS: PERCOCET 5MG/325MG TAB PO ×4 (09:53→22:36)
[2017-11-14] MEDS: MIRALAX *UNIT DOSE* 17GM PACKET PO (09:53)
[2017-11-14] MEDS: RIVAROXABAN 10 MG TAB (XARELTO) PO (18:14)
[2017-11-14] MEDS: FAMOTIDINE 20 MG TAB PO (18:21)
[2017-11-14] MEDS: ROSUVASTATIN 10 MG TAB (CRESTOR) PO (19:54)
[2017-11-14] MEDS: AZELASTINE 137MCG NASAL SPY 30 ML (ASTELIN) (19:54)
[2017-11-14] MEDS: CALCIUM CARBONATE 500 MG CHEW U/D PO (23:44)
[2017-11-15] MEDS: PERCOCET 5MG/325MG TAB PO ×3 (02:38→10:40)
[2017-11-15 05:53] LABS: HEMATOCRIT 33.2 % (42.0-52.0); HEMOGLOBIN 11.3 g/dl (13.5-17.5); MEAN CORPUSCULAR HEMOGLOBIN 31.4 pg (27.0-33.0); MEAN CORPUSCULAR VOLUME 92.2 fl (80.0-96.0); PLATELET COUNT, AUTOMATED 152 10^3/uL (150-450); RED CELL DISTRIBUTION WIDTH 13.3 % (11.5-14.5); WHITE BLOOD COUNT 6.9 10^3/uL (4.0-10.0)
[2017-11-15 06:21] LABS: ANION GAP 5 MEQ/L (8-16); BLOOD UREA NITROGEN 12 MG/DL (7-18); CALCIUM LEVEL 7.7 MG/DL (8.8-10.2); CARBON DIOXIDE LEVEL 28 MEQ/L (21-32); CHLORIDE LEVEL 107 MEQ/L (98-107); CREATININE FOR GFR 0.83 MG/DL (0.70-1.30); GLOMERULAR FILTRATION RATE > 60.0 (>49); GLUCOSE, FASTING 102 MG/DL (70-100); POTASSIUM SERUM 4.1 MEQ/L (3.5-5.1); SODIUM LEVEL 140 MEQ/L (136-145)
[2017-11-15] MEDS: LISINOPRIL 10 MG TAB PO (08:44)
[2017-11-15] MEDS: MOM 30ML SUSPENSION UDC PO (08:44)
[2017-11-15] MEDS: SENOKOT S TAB PO (08:44)
[2017-11-15] MEDS: MIRALAX *UNIT DOSE* 17GM PACKET PO (08:45)
== END 2017-11-15 10:55 | disposition home health service (06) | DRG 470 ==
LOC: M OR 09:02 → M MS5PR 16:15
PROC: 0SRD0J9 Replacement of Left Knee Joint with Synthetic Substitute, Cemented, Open Approach (ICD-10-PCS; principal; 2017-11-13 12:14)
DX: M17.12 Unilateral primary osteoarthritis, left knee (principal); I10 Essential (primary) hypertension; E78.5 Hyperlipidemia, unspecified; G47.33 Obstructive sleep apnea (adult) (pediatric); K21.9 Gastro-esophageal reflux disease without esophagitis; Z79.899 Other long term (current) drug therapy; Z96.651 Presence of right artificial knee joint; N52.9 Male erectile dysfunction, unspecified

== ENCOUNTER 2019-07-11 04:15 | Emergency (ER) | payer OTHER ==
[~2019-07-11] VITALS: Ht 193 cm; Wt 133.7 kg
[~2019-07-11 04:15] MED LIST changes: +LISI10TA4 PO; +OXYC1TAB23 PO; +XARE10TA PO; +ZANT150T40 PO; -ZANTTAB PO
[2019-07-11] MEDS ORDERED: ONDANSETRON 4MG/2ML VIAL (J2405) IV ONE (05:00)
[2019-07-11] MEDS ORDERED: MECLIZINE 25 MG TABLET PO ONE (05:00)
[2019-07-11] MEDS ORDERED: NS 1,000 ML IV ONE (05:00)
[2019-07-11 05:01] LABS: BASO % 0.5 % (0.0-1.0); EOS # 0.2 10^3/uL (0.0-0.5); HEMOGLOBIN 13.7 g/dl (13.5-17.5); LYMPH # 2.6 10^3/uL (1.5-5.0); LYMPH % 34.1 % (24.0-44.0); MEAN CORPUSCULAR HEMOGLOBIN 29.8 pg (27.0-33.0); MEAN CORPUSCULAR HGB CONC 31.9 g/dl (32.0-36.5); MEAN CORPUSCULAR VOLUME 93.5 fl (80.0-96.0); MONO # 0.6 10^3/uL (0.0-0.8); MONO % 8.2 % (0.0-5.0); NEUTROPHILS # 4.2 10^3/uL (1.5-8.5); NEUTROPHILS % 54.9 % (36.0-66.0); PLATELET COUNT, AUTOMATED 195 10^3/uL (150-450); WHITE BLOOD COUNT 7.7 10^3/uL (4.0-10.0)
[2019-07-11 05:13] LABS: BLOOD UREA NITROGEN 18 MG/DL (7-18); CALCIUM LEVEL 8.7 MG/DL (8.8-10.2); CARBON DIOXIDE LEVEL 22 MEQ/L (21-32); CHLORIDE LEVEL 108 MEQ/L (98-107); CK-MB VALUE MASS 4.7 NG/ML (<3.6); CPK CREATINE PHOSPHOKINASE 232 U/L (39-308); CREATININE FOR GFR 1.02 MG/DL (0.70-1.30); GLOMERULAR FILTRATION RATE > 60.0 (>49); GLUCOSE, FASTING 180 MG/DL (70-100); MB/CK RELATIVE INDEX 2.03 (< OR =4); POTASSIUM SERUM 3.5 MEQ/L (3.5-5.1); SODIUM LEVEL 141 MEQ/L (136-145); TROPONIN I < 0.02 NG/ML (< 0.10)
--- NOTE | 2019-07-11 05:43 | REP ---
Clinical: Acute cerebrovascular accident . Comparison: 10/24/2017 . Findings: The mediastinum and cardiac silhouette are stable and within normal limits for portable technique. The lung sosa are clear without acute consolidation, effusion, or pneumothorax. Skeletal structures are intact. Impression: No acute cardiopulmonary process appreciated. Electronically Signed by Curt Lomeli MD 07/11/2019 05:35 A
--- NOTE | 2019-07-11 06:00 | REPVR ---
PROCEDURE INFORMATION: Exam: CT Head Without Contrast Exam date and time: 07/11/2019 4:55 AM Age: 64 years old Clinical indication: Dizziness; Additional Info: CVA - Nursing interventions must not delay CT TECHNIQUE: Imaging protocol: Computed tomography of the head without contrast. Radiation optimization: All CT scans at this facility use at least one of these dose optimization techniques: automated exposure control; mA and/or kV adjustment per patient size (includes targeted exams where dose is matched to clinical indication); or iterative reconstruction. COMPARISON: No relevant prior studies available. FINDINGS: Brain: Normal. No hemorrhage. No significant white matter disease. No edema. Cortical guillen-white matter differentiation is preserved. Ventricles: Normal. No ventriculomegaly. Bones/joints: Unremarkable. No acute fracture. Sinuses: Visualized sinuses are unremarkable. No fluid levels. Mastoid air cells: Visualized mastoid air cells are well aerated. Soft tissues: Unremarkable. Vasculature: Atherosclerotic calcification of the carotid siphon. IMPRESSION: No cerebral changes of acute infarct on non-contrast CT at this time. Electronically signed by: Dk Pritchett On 07/11/2019 05:59:24 AM
[2019-07-11 06:44] VITALS: BP 145/77
[2019-07-11] MEDS ORDERED: CLAR1TAB13 PO (06:50)
[2019-07-11] MEDS ORDERED: MONT10TA2 PO (06:50)
[2019-07-11] MEDS ORDERED: MECL1TAB31 PO (06:51)
--- NOTE | 2019-07-15 06:44 | ECGEPIP ---
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
== END 2019-07-11 06:57 | disposition home or self-care (01) ==
LOC: M ED 04:15
DX: H83.09 Labyrinthitis, unspecified ear (principal); R09.81 Nasal congestion; Z91.030 Bee allergy status; Z79.52 Long term (current) use of systemic steroids; Z79.84 Long term (current) use of oral hypoglycemic drugs; Z79.899 Other long term (current) drug therapy
CPT/HCPCS: 70450; 71045; 80047; 80048; 82550; 82553; 84484; 85025; 93005; 93041; 96361; 96374; 99285; J2405

== ENCOUNTER → 2021-10-24 | Outpatient (CLI) | payer MEDICARE, OTHER ==
[~2021-10-24] MED LIST changes: +CLAR1TAB13 PO; +LISI10TA22 PO; -LISI10TA4 PO; +MECL1TAB31 PO; +MONT10TA97 PO
== END ==
LOC: M PLAIMG 06:52
PROVIDERS: ATTEND Orthopaedic Surgery
DX: M19.031 Primary osteoarthritis, right wrist (principal); M67.431 Ganglion, right wrist

== ENCOUNTER → 2021-12-14 | Outpatient (REF) | payer MEDICARE, OTHER ==
[~2021-12-14] MED LIST changes: +ALBU2.5V10 INH; -ALBU83IN INH
[2021-12-14 17:22] LABS: C REACTIVE PROTEIN QUANTITATIV < 0.30 MG/DL (0.00-0.30); RHEUMATOID FACTOR QUANT < 10.0 IU/ML (<15.0)
[2021-12-17 01:07] LABS: ANTINUCLEAR ANTIBODIES DIRECT Negative (Negative); CYCLIC CITRULLINATED PEPTIDE 11 units (0-19)
== END ==
LOC: M LAB REF 16:06
PROVIDERS: ATTEND Nurse Practitioner Adult Health
DX: M25.50 Pain in unspecified joint (principal)

== ENCOUNTER → 2022-05-10 | Outpatient (REF) | payer MEDICARE, OTHER | LOC: M LAB REF 16:17 | PROVIDERS: ATTEND Nurse Practitioner Adult Health | DX: M25.539 Pain in unspecified wrist (principal) ==

== ENCOUNTER → 2022-05-24 | Outpatient (CLI) | payer MEDICARE, OTHER | LOC: M PLAIMG 10:03 | PROVIDERS: ATTEND Nurse Practitioner Adult Health | DX: M25.571 Pain in right ankle and joints of right foot (principal); M25.572 Pain in left ankle and joints of left foot ==

== ENCOUNTER → 2022-08-03 | Outpatient (CLI) | payer MEDICARE, OTHER | LOC: M PLAIMG 11:08 | PROVIDERS: ATTEND Internal Medicine Rheumatology | DX: M77.31 Calcaneal spur, right foot (principal); M77.32 Calcaneal spur, left foot; M19.041 Primary osteoarthritis, right hand; M19.042 Primary osteoarthritis, left hand; M25.78 Osteophyte, vertebrae; M19.031 Primary osteoarthritis, right wrist; M19.032 Primary osteoarthritis, left wrist ==

== ENCOUNTER → 2022-08-15 | Outpatient (REF) | payer MEDICARE, OTHER ==
[2022-08-15 13:02] LABS: BASO % 0.2 % (0.0-1.0); EOS # 0.1 10^3/uL (0.0-0.5); EOS % 2.4 % (0.0-3.0); HEMATOCRIT 43.2 % (42.0-52.0); HEMOGLOBIN 13.8 g/dl (13.5-17.5); LYMPH # 1.1 10^3/uL (1.5-5.0); LYMPH % 24.2 % (24.0-44.0); MEAN CORPUSCULAR HEMOGLOBIN 30.1 pg (27.0-33.0); MEAN CORPUSCULAR HGB CONC 31.9 g/dl (32.0-36.5); MEAN CORPUSCULAR VOLUME 94.1 fl (80.0-96.0); MONO # 0.6 10^3/uL (0.0-0.8); MONO % 12.6 % (2.0-8.0); NEUTROPHILS # 2.7 10^3/uL (1.5-8.5); NEUTROPHILS % 60.2 % (36.0-66.0); PLATELET COUNT, AUTOMATED 202 10^3/uL (150-450); RED BLOOD COUNT 4.59 10^6/uL (4.30-6.10); WHITE BLOOD COUNT 4.5 10^3/uL (4.0-10.0)
[2022-08-15 13:08] LABS: C REACTIVE PROTEIN QUANTITATIV < 0.40 MG/DL (<1.0)
[2022-08-15 13:29] LABS: ERYTHROCYTE SEDIMENTATION RATE 33 mm/hr (0-20)
[2022-08-15 14:29] LABS: ALBUMIN 3.6 G/DL (3.2-5.2); ALKALINE PHOSPHATASE 77 U/L (46-116); ALT/SGPT 24 U/L (7.0-40); AST/SGOT 22 U/L (<34); BILIRUBIN,TOTAL 0.9 MG/DL (0.3-1.2); BLOOD UREA NITROGEN 17 MG/DL (9-23); CALCIUM LEVEL 8.8 MG/DL (8.3-10.6); CARBON DIOXIDE LEVEL 27 MMOL/L (20-31); CHLORIDE LEVEL 105 MMOL/L (98-107); GLUCOSE, FASTING 86 MG/DL (74-106); POTASSIUM SERUM 4.5 MMOL/L (3.5-5.1); SODIUM LEVEL 139 MMOL/L (136-145); TOTAL PROTEIN 6.2 G/DL (5.7-8.2)
[2022-08-15 19:54] LABS: CREATININE FOR GFR 1.11 MG/DL (0.70-1.30); GLOMERULAR FILTRATION RATE > 60.0 (>49)
== END ==
LOC: M SFHCRHEU 08:54
PROVIDERS: ATTEND Internal Medicine Rheumatology
DX: M25.50 Pain in unspecified joint (principal)

== ENCOUNTER → 2023-02-19 | Outpatient (REF) | payer MEDICARE, OTHER | LOC: M LAB REF 16:28 | PROVIDERS: ATTEND Internal Medicine | DX: R10.32 Left lower quadrant pain (principal) ==

== ENCOUNTER 2023-02-21 23:12 | Emergency (ER) | payer MEDICARE, OTHER ==
[~2023-02-21] VITALS: Ht 190.5 cm; Wt 147.8 kg
[2023-02-21 23:14] VITALS: TEMP 98
[2023-02-22 00:19] LABS: BASO % 0.4 % (0.0-1.0); EOS # 0.2 10^3/uL (0.0-0.5); EOS % 2.2 % (0.0-3.0); HEMATOCRIT 39.6 % (42.0-52.0); HEMOGLOBIN 13.3 g/dl (13.5-17.5); LYMPH # 1.3 10^3/uL (1.5-5.0); LYMPH % 15.9 % (24.0-44.0); MEAN CORPUSCULAR HEMOGLOBIN 31.1 pg (27.0-33.0); MEAN CORPUSCULAR HGB CONC 33.6 g/dl (32.0-36.5); MEAN CORPUSCULAR VOLUME 92.7 fl (80.0-96.0); MONO # 1.1 10^3/uL (0.0-0.8); MONO % 12.6 % (2.0-8.0); NEUTROPHILS # 5.7 10^3/uL (1.5-8.5); NEUTROPHILS % 68.7 % (36.0-66.0); PLATELET COUNT, AUTOMATED 207 10^3/uL (150-450); RED BLOOD COUNT 4.27 10^6/uL (4.30-6.10); WHITE BLOOD COUNT 8.3 10^3/uL (4.0-10.0)
[2023-02-22 00:38] LABS: LIPASE 42 U/L (12-53)
[2023-02-22 00:40] LABS: ALBUMIN 3.5 G/DL (3.2-5.2); ALKALINE PHOSPHATASE 80 U/L (46-116); ALT/SGPT 16 U/L (7.0-40); AST/SGOT 10 U/L (<34); BILIRUBIN,DIRECT 0.2 MG/DL (<0.4); BILIRUBIN,TOTAL 0.6 MG/DL (0.3-1.2); BLOOD UREA NITROGEN 15 MG/DL (9-23); CARBON DIOXIDE LEVEL 28 MMOL/L (20-31); CHLORIDE LEVEL 107 MMOL/L (98-107); CREATININE FOR GFR 1.02 MG/DL (0.70-1.30); GLOMERULAR FILTRATION RATE > 60.0 (>49); GLUCOSE, FASTING 102 MG/DL (74-106); POTASSIUM SERUM 4.5 MMOL/L (3.5-5.1); SODIUM LEVEL 140 MMOL/L (136-145); TOTAL PROTEIN 6.3 G/DL (5.7-8.2)
[2023-02-22] MEDS: GASTROGRAFIN SOLUTION 30ML PO SCH ×2 (02:54→03:33)
[2023-02-22] MEDS ORDERED: ISOVUE-370 76% 100ML VIAL As Ordered ONE (04:02)
[2023-02-22 05:00] VITALS: BP 159/87
[2023-02-22 05:45] VITALS: O2SAT 97
[2023-02-22] MEDS ORDERED: metroNIDAZOLE (FLAGYL) 500MG TABLET PO ONE (05:50)
[2023-02-22] MEDS ORDERED: CIPROFLOXACIN 500MG TABLET PO ONE (05:50)
[2023-02-22] MEDS ORDERED: CIPR-249 PO (05:53)
[2023-02-22] MEDS ORDERED: METR-265 PO (05:54)
== END 2023-02-22 06:13 | disposition home or self-care (01) ==
LOC: M ED 23:12
DX: K57.32 Diverticulitis of large intestine without perforation or abscess without bleeding (principal); I10 Essential (primary) hypertension; M19.90 Unspecified osteoarthritis, unspecified site; G47.30 Sleep apnea, unspecified; E78.5 Hyperlipidemia, unspecified; Z79.899 Other long term (current) drug therapy; Z91.030 Bee allergy status
CPT/HCPCS: 74177; 80048; 80076; 81001; 83690; 85025; 99284; Q9963; Q9967

== ENCOUNTER 2023-10-03 06:47 | Day surgery (SDC) | payer MEDICARE, OTHER ==
[~2023-10-03] VITALS: Ht 160 cm; Wt 146.6 kg
[~2023-10-03 06:47] MED LIST changes: +CIPR-249 PO; +LISI30TA4 PO; +MECL-209 PO; +MECL-86 PO; -MECL1TAB31 PO; +METR-265 PO
[2023-10-03] MEDS: NS 1,000 ML IV ONE (07:00)
[2023-10-03] MEDS ORDERED: propofoL 200 MG/20 ML VIAL As Ordered ONE (07:01)
[2023-10-03 08:02] VITALS: TEMP 97.1
[2023-10-03 08:22] VITALS: BP 120/79; O2SAT 96
== END 2023-10-03 08:36 | disposition home or self-care (01) ==
LOC: M OPP 06:47
PROVIDERS: ATTEND Internal Medicine Gastroenterology
DX: Z12.11 Encounter for screening for malignant neoplasm of colon (principal); Z86.010 Personal history of colon polyps; K64.0 First degree hemorrhoids; K57.30 Diverticulosis of large intestine without perforation or abscess without bleeding; K44.9 Diaphragmatic hernia without obstruction or gangrene; K31.A0 Gastric intestinal metaplasia, unspecified; R12 Heartburn; I10 Essential (primary) hypertension; G47.30 Sleep apnea, unspecified; Z99.89 Dependence on other enabling machines and devices; Z79.02 Long term (current) use of antithrombotics/antiplatelets; Z79.51 Long term (current) use of inhaled steroids; Z79.899 Other long term (current) drug therapy; Z91.030 Bee allergy status
CPT/HCPCS: 43239; 88305; G0105

== ENCOUNTER → 2025-01-29 | Outpatient (CLI) | payer MEDICARE, OTHER ==
[2025-01-29 15:49] LABS: BASO # 0.0 10^3/uL (0.0-0.2); BASO % 0.6 % (0.0-1.0); EOS # 0.1 10^3/uL (0.0-0.5); EOS % 2.8 % (0.0-3.0); LYMPH # 1.4 10^3/uL (1.5-5.0); LYMPH % 26.5 % (24.0-44.0); MONO # 0.7 10^3/uL (0.0-0.8); MONO % 13.6 % (2.0-8.0); NEUTROPHILS # 2.9 10^3/uL (1.5-8.5); NEUTROPHILS % 56.3 % (36.0-66.0); PLATELET COUNT, AUTOMATED 180 10^3/uL (150-450)
[2025-01-29 16:11] LABS: IRON (FE) 73.0 UG/DL (65-175); PERCENT SATURATION 26.2 % (19.7-50.0)
== END ==
LOC: M PLALAB 12:14
PROVIDERS: ATTEND Orthopaedic Surgery
DX: Z01.818 Encounter for other preprocedural examination (principal); D50.9 Iron deficiency anemia, unspecified

== ENCOUNTER → 2025-05-27 | Outpatient (CLI) | payer MEDICARE, OTHER ==
[2025-05-27 14:39] LABS: BASO # 0.0 10^3/uL (0.0-0.2); BASO % 0.4 % (0.0-1.0); EOS # 0.1 10^3/uL (0.0-0.5); EOS % 0.9 % (0.0-3.0); LYMPH # 1.0 10^3/uL (1.5-5.0); LYMPH % 17.8 % (24.0-44.0); MONO # 0.6 10^3/uL (0.0-0.8); MONO % 10.1 % (2.0-8.0); NEUTROPHILS # 3.9 10^3/uL (1.5-8.5); NEUTROPHILS % 70.4 % (36.0-66.0); PLATELET COUNT, AUTOMATED 187 10^3/uL (150-450)
[2025-05-27 15:04] LABS: CALCIUM LEVEL 9.1 MG/DL (8.3-10.6); CARBON DIOXIDE LEVEL 26.0 MMOL/L (20-31); CHLORIDE LEVEL 107.0 MMOL/L (98-107); CREATININE FOR GFR 1.0 MG/DL (0.70-1.30); GLOMERULAR FILTRATION RATE 81.0 (>42); MAGNESIUM LEVEL 1.9 MG/DL (1.8-2.4); POTASSIUM SERUM 4.6 MMOL/L (3.5-5.1); SODIUM LEVEL 143.0 MMOL/L (136-145)
[2025-05-27 15:05] LABS: FREE T4 1.21 NG/DL (0.89-1.76)
== END ==
LOC: M PLALAB 09:27
PROVIDERS: ATTEND Nurse Practitioner Family
DX: I49.3 Ventricular premature depolarization (principal); Z79.899 Other long term (current) drug therapy

== ENCOUNTER → 2025-06-01 | Outpatient (CLI) | payer MEDICARE, OTHER | LOC: M EKG 10:14 | PROVIDERS: ATTEND Nurse Practitioner Family | DX: I49.3 Ventricular premature depolarization (principal) ==